=== PATIENT | male | born 1970 | race Caucasian/White ===

== ENCOUNTER 2019-01-18 14:34 | Emergency (ER) | payer OTHER, SELFPAY ==
[2019-01-18 14:47] VITALS: BP 132/81; PULSE 81; RESP 14; TEMP 37; O2SAT 97
--- NOTE | 2019-01-18 15:32 | ED.GENADUL_ITS ---
Discharge Plan Disposition Patient Disposition: HOME Condition: Good Discharge Details Chief Complaint: Laceration Clinical Impression: Laceration of left ring finger Primary Care Provider: Buck Mayorga ED Provider: Immanuel Marcum Home Meds and New Rx's Prescriptions: No Action No Known Home Meds RF: 0 Discharge Instructions Instructions: Care For Your Stitches (ED), Finger Laceration (ED) Additional Instructions: Please use the splint on your finger for the next 3-4 days to allow for maximal wound healing. Please leave the dressing on for 24 hours, then you may remove and begin cleaning the wound at least twice a day with soap and water. Watch for any signs of infection and return if any increasing redness, swelling, pain, drainage. Please return here in the next 7-10 days for reevaluation and potential suture removal. If you notice any worsening of your symptoms, or any new symptoms such as vomiting, diarrhea, fever, chills, shortness of breath, chest pain, numbness, weakness, or fainting , please return immediately to the emergency department for reevaluation. Please follow up with your primary care provider as soon as possible for reassessment and reevaluation. As always, it was a pleasure participating in your medical care today. Referrals: Buck Mayorga [Primary Care Provider] - Medical Decision Making This is a very pleasant 48-year-old male who presents for laceration. He got a small 1.5 cm laceration on the dorsal aspect of his ring finger on his nondominant hand. Ring was removed here. His tetanus was updated in 2010. The area was anesthetized with 3 mL's of 1% lidocaine. It was then scrubbed with chlorhexidine scrub and irrigated with copious amounts of normal saline. Exploration revealed no evidence of tendon involvement. Patient demonstrates normal sensation, two-point discrimination, and movement in all aspects of movement for the finger showing no evidence of tendon disruption or pathology. 2 simple interrupted sutures were placed with 5-0 Ethilon suture. Patient tolerated this well. Dermabond was then placed over the suture site. Patient will be discharged home with close follow-up. We discussed red flags which to return. Patient will be placed with a splint on his finger to prevent any significant tension to the finger. I have extensively reviewed the treatment plan and discharge instructions with the patient. I have addressed all patient concerns at this time. The patient was made aware of what symptoms to monitor for that would warrant a return to the emergency department. Discussed the plan with the patient, they demonstrate verbal understanding and agreement with our assessment and plan at this time. HPI General Date/Time Provider Initiated Documentation: 01/18/19 14:54 . HPI Narrative: This is a 48-year-old male with no past medical history who presents today for evaluation of laceration. He is right-hand dominant. Roughly 1 hour prior to arrival he developed a small 1.5 cm laceration to the dorsal aspect of his ring finger. It occurred by accidentally comes himself on a sharp string cutter. He has no significant pain, numbness tingling or weakness in the finger, however he does have some difficulty controlling the bleeding and that is why he came in here. The finger has continued to ooze whenever he tries to move it. Patient denies any other complaints. No other modifying factors. Tetanus was updated in 2010. He is not a diabetic. He is not on any blood thinners. The string cutter was cleaned per Related Data Home Medications Medication Instructions Recorded Confirmed Unknown [No Known Home Meds] 01/18/19 01/18/19 Allergies Allergy/AdvReac Type Severity Reaction Status Date / Time No Known Allergies Allergy Unverified 01/18/19 14:51 General Stated Complaint: Laceration CODY: 4 Review of Systems Review of Systems All systems reviewed & are unremarkable except as noted in HPI and below PFSH Medical History Rotator cuff syndrome of shoulder and allied disorders (Acute) Surgical History H/O splenectomy (Acute) Social History Smoking/Tobacco Use Status: Former Tobacco Use Alcohol Intake: never Drug use: Never Substance use type: does not use Do you feel safe at home: Yes Do you feel safe in your relationship?: Yes Additional Social history: quit smoking couple years ago Exam Narrative Exam Narrative: 1.Const: Well-nourished, Well-developed, appearing stated age 2.Eyes: PERRL, no conjunctival injection, and symmetrical lids. 3.ENT: Atraumatic external nose and ears. Moist MM. Neck: Symmetric, trachea midline, No thyromegaly. 4.CVS: +S1/S2, No murmurs or gallops. Peripheral pulses 2+ and equal in all extremities. Brisk capillary refill in all extremities. 5.RESP: Unlabored respiratory effort. Clear to auscultation bilaterally. No wheezes rales or rhonchi 6.GI: Soft, Nontender/Nondistended, No hepatosplenomegaly. No guarding or rebound. 7.MSK: Normocephalic/Atraumatic, Extremities w/o deformity or ttp No cyanosis or clubbing, Normal movement of all extremities. Normal flexion and extension distal to the site of injury for the ring finger on the left hand. No evidence of joint weakness or laxity in the finger. Excellent capillary refill distal to the injury, and normal two-point discrimination at 5 mm. 8.Skin: Warm, Dry. 1.5 cm linear laceration on the nondominant left hand in the dorsal aspect of the ring finger between the interphalangeal joint and the DIP joint. Exploration reveals no evidence of tendon involvement or tendon presence. Laceration is superficial without any impact on the deep structures. No evidence of bone or tendon involvement. 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 Sensation grossly intact, no focal neurologic deficits. 10.Psych: (AAO) x3. Appropriate mood and affect Course Vital Signs Temperature 37.0 C 01/18/19 14:47 Pulse 81 01/18/19 14:47 Respiratory Rate 14 01/18/19 14:47 Blood Pressure 132/81 01/18/19 14:47 Pulse Oximetry 97 01/18/19 14:47 Temperature 37.0 C 01/18/19 14:47 Temperature Source Skin 01/18/19 14:47 Pulse 81 01/18/19 14:47 Respiratory Rate 14 01/18/19 14:47 Respiratory Effort 01/18/19 14:52 Blood Pressure 132/81 01/18/19 14:47 Blood Pressure Position Sitting 01/18/19 14:47 Pulse Oximetry 97 01/18/19 14:47 Oxygen Delivery Method Room Air 01/18/19 14:47 Oxygen Flow Rate 0 01/18/19 14:47 Pain Level 0 01/18/19 15:15
== END 2019-01-18 15:35 | disposition home or self-care (01) ==
PROVIDERS: Emergency Provider Student in an Organized Health Care Education/Training Program; PCP Internal Medicine
DX: S61.215A Laceration without foreign body of left ring finger without damage to nail, initial encounter (principal); W26.0XXA Contact with knife, initial encounter
CPT/HCPCS: 12001

== ENCOUNTER 2019-01-29 15:39 | Emergency (ER) | payer SELFPAY ==
--- NOTE | 2019-01-29 15:46 | ED.GENADUL_ITS ---
Discharge Plan Disposition Patient Disposition: HOME Condition: Good Discharge Details Chief Complaint: SutureRem Clinical Impression: Visit for suture removal Primary Care Provider: Buck Mayorga ED Provider: Buck Villanueva Home Meds and New Rx's Prescriptions: No Action No Known Home Meds RF: 0 Discharge Instructions Additional Instructions: May resume normal activity. Medical Decision Making Two sutures removed without significant difficulty. Discharged home. HPI General Mode of arrival: ambulatory . Date/Time Provider Initiated Documentation: 01/29/19 15:44 . Limitations to Documentation: no limitations . Information obtained by: patient . HPI Narrative: Patient presents to have sutures removed out of finger. Has been in for over a week now. No issues at all. Related Data Home Medications Medication Instructions Recorded Confirmed Unknown [No Known Home Meds] 01/18/19 01/18/19 Allergies Allergy/AdvReac Type Severity Reaction Status Date / Time No Known Allergies Allergy Unverified 01/18/19 14:51 General CODY: 4 Review of Systems Constitutional Denies fever(s) Integumentary/Breasts Denies erythema PFSH Medical History Rotator cuff syndrome of shoulder and allied disorders (Acute) Surgical History H/O splenectomy (Acute) Social History Smoking/Tobacco Use Status: Former Tobacco Use Alcohol Intake: never Drug use: Never Substance use type: does not use Do you feel safe at home: Yes Do you feel safe in your relationship?: Yes Additional Social history: quit smoking couple years ago Exam Narrative Exam Narrative: Laceration has healed well. No sign of infection or problems. Normal ROM of hand/finger.
== END 2019-01-29 16:18 | disposition home or self-care (01) ==
PROVIDERS: Emergency Provider Emergency Medicine; PCP Internal Medicine
DX: S61.215D Laceration without foreign body of left ring finger without damage to nail, subsequent encounter (principal); W26.0XXD Contact with knife, subsequent encounter; Z48.02 Encounter for removal of sutures

== ENCOUNTER 2020-02-01 08:12 | Outpatient (CLI) | payer OTHER, SELFPAY ==
--- NOTE | 2020-02-01 08:18 | DI.RAD_ITS ---
EXAM: XR FOOT LT COMPLETE CLINICAL HISTORY: PLANTAR FASCITIS LT, M72.2. TECHNIQUE: 2D digital imaging was performed. COMPARISON: No exams were available for comparison FINDINGS: BONES: A plantar calcaneal spur is seen. No acute fracture is present. No bony destructive lesion is seen. JOINTS: There are no significant degenerative changes. No dislocation present. SOFT TISSUE: Normal. IMPRESSION: Small heel spur. DATA REPOSITORY: RADIATION DOSE DELIVERED:
--- NOTE | 2020-02-01 08:18 | DI.RAD_ITS ---
EXAM: XR ANKLE LT COMPLETE CLINICAL HISTORY: PLANTAR FASCITIS LT, M72.2 TECHNIQUE: 2D digital imaging was performed. COMPARISON: No exams were available for comparison FINDINGS: There is a small plantar calcaneal spur. There is spurring at the medial malleolus. There is mild deformity of the lateral malleolus which could be related to previous trauma. There are 2 small calc ifications seen adjacent to the lateral malleolus which also are likely related to old trauma. The t ibiotalar joint space is well maintained. No talar dome defect is seen. IMPRESSION: Small heel spur. Mild degenerative changes and question of old posttraumatic changes of the lateral m alleolus.
== END 2020-02-01 08:32 ==
PROVIDERS: PCP Internal Medicine; Visit Provider Physician Assistant
DX: M72.2 Plantar fascial fibromatosis (principal); M77.32 Calcaneal spur, left foot; M89.8X7 Other specified disorders of bone, ankle and foot
CPT/HCPCS: 73610; 73630

== ENCOUNTER 2021-06-26 18:34 | Emergency (ER) | payer OTHER, SELFPAY ==
[2021-06-26 18:37] VITALS: BP 134/108; PULSE 112; RESP 16; TEMP 37; O2SAT 97
--- NOTE | 2021-06-26 18:40 | ED.GENADUL_ITS ---
Discharge Plan Disposition Patient Disposition: HOME Condition: Stable Discharge Details Clinical Impression: Enteritis Primary Care Provider: Buck Mayorga ED Provider: Noemy Branch Home Meds and New Rx's Prescriptions: New levofloxacin 750 mg tablet 750 mg PO DAILY Qty: 10 RF: 0 metronidazole [Flagyl] 500 mg tablet 500 mg PO TID Qty: 30 RF: 0 Discharge Instructions Instructions: Enteritis (ED) Additional Instructions: clear liquids advance as tolerated. push fluids to stay well hydrated return if unable to tolerate oral fluids collect stool as directed, return to lab for evaluation Referrals: Buck Mayorga [Primary Care Provider] - Samara Lopez DO [ NON-[facility]ICIAN] - (call Tuesday for follow up) Discharge Orders Other Ambulatory Orders: Calprotectin (Routine) Facility: [facility] - Location: Laboratory Nonpatient Ordered By: Noemy Branch C Diff PCR (Stat) Location: None Selected Ordered By: Noemy Branch Medical Decision Making presents with several day history of diarrhea now with one day of left sided abdominal pain. no fevers or vomiting. diarrhea is watery, no blood. will establish IV routine abd pain labs including cbc, cmp. lipase and urine. no antiemetics needed. differentials include diverticulitis, gastroenteritis, less likely kidney stone. will obtain CT abd/pelvis and give 1liter of NS, tachy and hyptensive, likely d/t pain and mild dehydration, non toxic appearing. ct scan results reviewed with Dr Lopez who recommends treatment for infectious enteritis is levaquin and flagyl and outpatient f/u with their office patient vitals improved after one liter of NS. able to tolerate PO fluids and abdominal re-exam benign but with ongoing left sided discomfort. safe for discharge to home on antibiotics, first dose given here, will f/u outpatient or return sooner if new or worsening symptoms Medical Records Medical records reviewed: Yes I reviewed the patient's medical records. Imaging Data Radiologic Study: Imaging: X-Ray Radiologist's impression: Exam(s) PROCEDURE INFORMATION: Exam: CT Abdomen And Pelvis With Contrast Exam date and time: 06/26/2021 6:48 PM Age: 50 years old Clinical indication: Other: Left-sided abdominal pain and diarrhea; Prior surgery; Surgery date: 6+ months; Surgery type: Splenectomy several years ago TECHNIQUE: Imaging protocol: Computed tomography of the abdomen and pelvis with contrast. Radiation optimization: All CT scans at this facility use at least one of these dose optimization techniques: automated exposure control; mA and/or kV adjustment per patient size (includes targeted exams where dose is matched to clinical indication); or iterative reconstruction. Contrast material: OMNIPAQUE 350; Contrast volume: 100 ml; Contrast route: INTRAVENOUS (IV); COMPARISON: No relevant prior studies available. FINDINGS: Lungs: Lateral left lower lobe 5 mm pulmonary nodule on series 4, image 6. The remainder of the visualized lung bases are clear. Liver: Mild generalized hepatic steatosis. Gallbladder and bile ducts: Normal. No calcified stones. No ductal dilation. Pancreas: Calcifications in the pancreatic tail reflective of chronic pancreatitis. No peripancreatic fat stranding or fluid at this time to suggest acute findings. Spleen: Large regenerating splenic rest at the site of the prior splenectomy measuring 8.5 cm with mass effect on the splenic flexure of the colon but no proximal obstruction. Adrenal glands: Normal. No mass. Kidneys and ureters: Normal. No hydronephrosis. Stomach and bowel: Mild mucosal enhancement of the terminal ileum. Query terminal ileitis. Mild proximal jejunal wall thickening. Appendix: Appendix is normal in caliber. No periappendiceal edema. No findings to suggest acute appendicitis. Intraperitoneal space: Unremarkable. No free air. No significant fluid collection. Vasculature: Unremarkable. No abdominal aortic aneurysm. Lymph nodes: Unremarkable. No enlarged lymph nodes. Urinary bladder: Unremarkable as visualized. Reproductive: Unremarkable as visualized. Bones/joints: Unremarkable. No acute fracture. Soft tissues: Unremarkable. IMPRESSION: 1. Postoperative changes of splenectomy with a large regenerating splenic rest exerting mild mass effect on the splenic flexure of the colon but no proximal large bowel dilatation. 2. Mucosal enhancement of the terminal ileum and jejunal wall thickening suggestive of multifocal enteritis. Correlate with history of infectious versus inflammatory bowel disease. Terminal ileal findings are seen in Crohn's ileitis. 3. A 5 mm left lower lobe pulmonary nodule.For patients at low risk (minimal or absent history of smoking and of other known risk factors), no routine follow-up is indicated. For patients at high risk (history of smoking or of other known risk factors), consider optional CT Chest at 12 months. (Reference: Devne) Lab Data Lab results reviewed: Yes I reviewed the patient's lab results. HPI General Mode of arrival: ambulatory . Date/Time Provider Initiated Documentation: 06/26/21 18:39 . Limitations to Documentation: no limitations . Information obtained by: patient . HPI Narrative: patient presents with left sided abdominal pain that wraps around his back, states pain started yesterday. he reports diarrhea for past 3 days, not bloody but very watery. no fevers or nausea. states he had the similar pain when his spleen ruptured. states a family member had recent right sided abdominal pain. no difficulty voiding Related Data Home Medications Medication Instructions Recorded Confirmed levofloxacin 750 mg PO DAILY #10 tab 06/26/21 metronidazole [Flagyl] 500 mg PO TID #30 tab 06/26/21 Previous Rx's Medication Instructions Recorded levofloxacin 750 mg PO DAILY #10 tab 06/26/21 metronidazole [Flagyl] 500 mg PO TID #30 tab 06/26/21 Allergies Allergy/AdvReac Type Severity Reaction Status Date / Time No Known Allergies Allergy Unverified 06/26/21 18:45 General CODY: 4 Review of Systems All systems reviewed & are unremarkable except as noted in HPI and below Constitutional Constitutional: Denies chills, Denies fever(s) and Denies poor appetite Gastrointestinal Gastrointestinal: Reports abdominal pain (left side), Denies hematochezia, Denies cramping, Reports diarrhea (watery), Denies nausea and Denies vomiting Genitourinary Genitourinary: Denies hematuria, Denies urinary frequency, Denies urinary hesitancy and Denies urinary urgency [facility] Medical History (Updated 06/26/21 @ 20:47 by Neomy Branch NP) Rotator cuff syndrome of shoulder and allied disorders Surgical History H/O splenectomy Social History Smoking/Tobacco Use Status: Current every day Tobacco Type: smokeless tobacco Smoking risk assessment performed?: Yes Alcohol Intake: never Drug use: Never Substance use type: does not use Do you feel safe at home: Yes Do you feel safe in your relationship?: Yes Additional Social history: quit smoking couple years ago - chews Exam Const General: cooperative, healthy appearing, comfortable and no acute distress Nutritional Appearance: obese Orientation: alert, awake and oriented x3 HENMT Head: normal to inspection, normocephalic and atraumatic Mouth: oral mucosae normal Resp Effort & Inspection: normal respiratory effort Cardio Rate: tachycardic Rhythm: regular rhythm GI Inspection: distended and obesity Palpation: soft, not firm, no guarding, no masses and tender in the LLQ and in the LUQ
--- NOTE | 2021-06-26 18:45 | DI.CT_ITS ---
Exam(s) CT ABDOMEN PELVIS W EXAM: CT ABDOMEN PELVIS W CLINICAL HISTORY: left sided abdominal pain and diarrhea. TECHNIQUE: Imaging Protocol: Axial computed tomography images with coronal and sagittal reformatted images were created and reviewed CONTRAST MATERIAL: Intravenous: Omnipaque 100cc Oral: None COMPARISON: No exams were available for comparison FINDINGS: VISUALIZED LUNG BASES: There is a 5 millimeter nodule in the lateral basal segment of the left lower lobe. No pleural effusions.. ABDOMEN: Apparently there has been prior splenectomy There is no ascites. LIVER: Liver is diffusely hypodense implying moderate steatosis. There are no discrete focal hepatic lesions identified. GALLBLADDER/BILIARY: No obvious gallbladder pathology. CBD is not dilated. PANCREAS: No evidence of pancreatic mass nor dilatation of the pancreatic duct. There are 3 small pa ncreatic parenchymal calcifications are noted. SPLEEN: There is splenic appearing tissue in left upper quadrant measuring 7.8 cm by 6.3 cm by 7.7 cm . Probably consistent with regenerated splenic rest. This is medially adjacent to the splenic flexu re of the colon. No perisplenic fluid splenic and portal veins are patent. ADRENALS: There are no significant adrenal masses. KIDNEYS:No cysts evident. No solid renal masses. No calculi nor hydronephrosis.. ABDOMINAL AORTA: Abdominal aorta is not enlarged. LYMPH NODES:There is no retroperitineal nor paraaortic adenopathy. ABDOMINAL WALL: No evidence of significant anterior abdominal wall hernia. GI: There is no evidence of bowel obstruction, free air, nor abscess. There may be slight generalized thickening of the wall of the jejunum. PELVIS: GI: No evidence of appendicitis.No evidence of sigmoid diverticulitis. LYMPH NODES: There is no intrapelvic nor inguinal adenopathy. REPRODUCTIVE: Prostate gland slightly enlarged. Contains calcifications. Seminal vesicles unremarka ble. URINARY BLADDER: No calculi nor obvious masses. Pelvic ureters are not dilated. OSSEOUS: No significant osseous lesions. IMPRESSION: 1. There is a 7.8 x 6.3 x 7.7 cm regenerated splenic rest adjacent to the splenic fracture of the col on. Splenic vein is patent. 2. Slight thickening of the small bowel jejunal wall (generalized), possibly related to an element of enteritis. This difficult to assess accurately without oral contrast. 3. Hepatic steatosis. No discrete focal hepatic lesions. 4. There are 3 small calcifications are noted in the pancreatic parenchyma. No discrete pancreatic m ass is noted. 5. 5 millimeter nodule noted in the left lower lobe. If clinically indicated recommend low-dose hillary st CT scan to determine if there are other nodules. RADIATION DOSE DELIVERED: 1,084.68mGy.cm Total DLP DATA REPOSITORY: All CT scans at this facility are submitted to the National Radiology Data Registry (NRDR) Dose Index Registry (DIR) with the [employer] (A[employer]). RADIATION OPTIMIZATION: All CT scans at this facility use at least one of these dose optimization te chniques: automated exposure control; mA and/or kV adjustment per patient size (includes targeted exa ms where dose is matched to clinical indication); or iterative reconstruction.
[2021-06-26] MEDS: Normal Saline 1,000 ML 1000 ML IV (18:50)
[2021-06-26 19:03] LABS: Abs Immature Grans 0.04 10^3/uL (0.0-0.06); Absolute Eosinophil Count 0.35 10^3/uL (0.0-0.7); Absolute Lymphocyte Count 2.78 10^3/uL (1.2-3.4); Absolute Monocyte Count 0.98 10^3/uL (0.1-0.8); Absolute Neutrophil Count 7.26 10^3/uL (1.2-6.7); Basophils % 0.3; Eosinophils % 3.1; HCT 48.2 % (40.0-50.0); HGB 16.5 g/dL (13.5-17.5); Immature Grans % 0.3; Lymphocytes % 24.3; MCH 30.8 pg (27.0-33.0); MCHC 34.2 % (32.0-36.0); MCV 89.9 fL (80-95); MPV 9.3 fL (8.0-11.0); Monocytes % 8.6; Neutrophils % 63.4; Nucleated RBC 0 %; Platelet Count 324 10^3/uL (130-400); RBC 5.36 10^6/uL (4.36-5.78); RDW 12.6 % (11.8-14.1); RDW-SD 41.4 fL; WBC 11.45 10^3/uL (4.4-10.8)
[2021-06-26 19:04] LABS: Absolute Basophil Count 0.03 10^3/uL (0.0-0.2)
[2021-06-26 19:09] LABS: ALT 63 U/L (16-63); AST 26 U/L (15-37); Albumin 3.9 g/dL (3.4-5.0); Alkaline Phosphatase 116 U/L (46-116); Anion Gap 7.8 mmol/L (3-11); BUN 18 mg/dL (7-18); Bilirubin, Total 0.6 mg/dL (0.2-1.0); CO2 25.2 mmol/L (21.0-32.0); CREATININE 1.3 mg/dL (0.70-1.30); Calcium 8.6 mg/dL (8.5-10.1); Chloride 105 mmol/L (98-107); Estimated GFR 58.67 (mL/min/1.73m2); Glucose 97 mg/dL (74-106); Potassium 3.9 mmol/L (3.5-5.1); Sodium 138 mmol/L (136-145); Total Protein 7.5 g/dL (6.4-8.2)
[2021-06-26 19:11] LABS: Lipase 96 U/L (73-393); Magnesium 1.9 mg/dL (1.8-2.4)
[2021-06-26] MEDS: Omnipaque 350 MG/ML 100 ML BTL IJ (19:28)
[2021-06-26] MEDS: Normal Saline Flush 10 ML SYR IVP (19:30)
[2021-06-26 20:03] VITALS: BP 127/79; PULSE 89; RESP 16; TEMP 36.8; O2SAT 98
--- NOTE | 2021-06-26 20:15 | DI.VRAD_ITS ---
PROCEDURE INFORMATION: Exam: CT Abdomen And Pelvis With Contrast Exam date and time: 06/26/2021 6:48 PM Age: 50 years old Clinical indication: Other: Left-sided abdominal pain and diarrhea; Prior surgery; Surgery date: 6+ months; Surgery type: Splenectomy several years ago TECHNIQUE: Imaging protocol: Computed tomography of the abdomen and pelvis with contrast. Radiation optimization: All CT scans at this facility use at least one of these dose optimization techniques: automated exposure control; mA and/or kV adjustment per patient size (includes targeted exams where dose is matched to clinical indication); or iterative reconstruction. Contrast material: OMNIPAQUE 350; Contrast volume: 100 ml; Contrast route: INTRAVENOUS (IV); COMPARISON: No relevant prior studies available. FINDINGS: Lungs: Lateral left lower lobe 5 mm pulmonary nodule on series 4, image 6. The remainder of the visualized lung bases are clear. Liver: Mild generalized hepatic steatosis. Gallbladder and bile ducts: Normal. No calcified stones. No ductal dilation. Pancreas: Calcifications in the pancreatic tail reflective of chronic pancreatitis. No peripancreatic fat stranding or fluid at this time to suggest acute findings. Spleen: Large regenerating splenic rest at the site of the prior splenectomy measuring 8.5 cm with mass effect on the splenic flexure of the colon but no proximal obstruction. Adrenal glands: Normal. No mass. Kidneys and ureters: Normal. No hydronephrosis. Stomach and bowel: Mild mucosal enhancement of the terminal ileum. Query terminal ileitis. Mild proximal jejunal wall thickening. Appendix: Appendix is normal in caliber. No periappendiceal edema. No findings to suggest acute appendicitis. Intraperitoneal space: Unremarkable. No free air. No significant fluid collection. Vasculature: Unremarkable. No abdominal aortic aneurysm. Lymph nodes: Unremarkable. No enlarged lymph nodes. Urinary bladder: Unremarkable as visualized. Reproductive: Unremarkable as visualized. Bones/joints: Unremarkable. No acute fracture. Soft tissues: Unremarkable. IMPRESSION: 1. Postoperative changes of splenectomy with a large regenerating splenic rest exerting mild mass effect on the splenic flexure of the colon but no proximal large bowel dilatation. 2. Mucosal enhancement of the terminal ileum and jejunal wall thickening suggestive of multifocal enteritis. Correlate with history of infectious versus inflammatory bowel disease. Terminal ileal findings are seen in Crohn's ileitis. 3. A 5 mm left lower lobe pulmonary nodule.For patients at low risk (minimal or absent history of smoking and of other known risk factors), no routine follow-up is indicated. For patients at high risk (history of smoking or of other known risk factors), consider optional CT Chest at 12 months. (Reference: Deven) REFERENCES: Deven Sanchez et al. Guidelines for Management of Incidental Pulmonary Nodules Detected on CT Images: From the Fleischner Society 2017. Radiology. 2017;284(1):228-243. Dictated and Authenticated by: Mo Tucker MD. Ordering:ANT Salguero MD
[2021-06-26] MEDS: metroNIDAZOLE 500 MG TAB, 3 TABS/BTL PO (20:43)
[2021-06-26] MEDS: levoFLOXacin 500 MG, levoFLOXacin 250 MG 750 MG PO (20:44)
[2021-06-26 21:02] LABS: Bilirubin Negative (Negative); Blood Trace-lysed (Negative); Clarity Clear (Clear); Glucose Negative (Negative); Ketones Negative (Negative); Leukocyte Esterase Negative (Negative); Nitrite Negative (Negative); Urobilinogen 0.2 EU/dL (Up TO 0.2); pH 5.5 (5-8)
[2021-06-26 21:06] LABS: Bacteria Negative HPF (Negative); C & S Indicated? No; Casts Negative LPF (Negative); Crystals Negative HPF (Negative); Epithelial Cells Few HPF (Negative); Mucus Negative (Negative); RBC 0-2 HPF (0-2); WBC 0-2 HPF (0-5)
== END 2021-06-26 21:00 | disposition home or self-care (01) ==
PROVIDERS: Emergency Provider Nurse Practitioner Acute Care; PCP Internal Medicine
DX: K52.9 Noninfective gastroenteritis and colitis, unspecified (principal)
CPT/HCPCS: 36415; 80053; 83690; 96360; 99285; 74177; 81003; 81015; 83735; 85025; 99284; J3490

== ENCOUNTER 2021-07-21 07:00 | Outpatient (REF) | payer OTHER, SELFPAY ==
[2021-07-21 19:26] LABS: Abs Immature Grans 0.03 10^3/uL (0.0-0.06); Absolute Basophil Count 0.04 10^3/uL (0.0-0.2); Absolute Eosinophil Count 0.72 10^3/uL (0.0-0.7); Absolute Lymphocyte Count 3.21 10^3/uL (1.2-3.4); Absolute Monocyte Count 1.19 10^3/uL (0.1-0.8); Absolute Neutrophil Count 5.99 10^3/uL (1.2-6.7); Basophils % 0.4; Eosinophils % 6.4; HCT 46.3 % (40.0-50.0); HGB 15.5 g/dL (13.5-17.5); Immature Grans % 0.3; Lymphocytes % 28.7; MCH 30.6 pg (27.0-33.0); MCHC 33.5 % (32.0-36.0); MCV 91.3 fL (80-95); MPV 9.9 fL (8.0-11.0); Monocytes % 10.6; Neutrophils % 53.6; Nucleated RBC 0 %; Platelet Count 299 10^3/uL (130-400); RBC 5.07 10^6/uL (4.36-5.78); RDW 12.6 % (11.8-14.1); RDW-SD 42.2 fL; WBC 11.18 10^3/uL (4.4-10.8)
[2021-07-21 19:59] LABS: ALT 57 U/L (16-63); AST 30 U/L (15-37); Albumin 3.6 g/dL (3.4-5.0); Alkaline Phosphatase 94 U/L (46-116); Anion Gap 8.8 mmol/L (3-11); BUN 15 mg/dL (7-18); Bilirubin, Total 0.4 mg/dL (0.2-1.0); CO2 26.2 mmol/L (21.0-32.0); Calcium 8.5 mg/dL (8.5-10.1); Chloride 105 mmol/L (98-107); Glucose 98 mg/dL (74-106); Potassium 4.3 mmol/L (3.5-5.1); Sodium 140 mmol/L (136-145); Total Protein 6.5 g/dL (6.4-8.2)
[2021-07-21 21:55] LABS: C Diff PCR Negative (Negative)
[2021-07-23 11:00] LABS: Campylobacter PCR Negative (Negative); Salmonella PCR Negative (Negative); Shiga Toxin PCR Negative (Negative); Shigella/Enteroinvasive Ecoli Negative (Negative)
== END 2021-07-22 07:44 | disposition home or self-care (01) ==
LOC: NCHCN 07:00
PROVIDERS: PCP Internal Medicine; Visit Provider Physician Assistant
DX: R19.7 Diarrhea, unspecified (principal)
CPT/HCPCS: 80053; 87329; 87493; 87505; 85025; 87177

== ENCOUNTER 2022-12-28 16:52 | Outpatient (REF) | payer BC, SELFPAY ==
[2022-12-28 20:06] LABS: Hemoglobin A1C 6.4 % (<5.7)
[2022-12-28 20:08] LABS: ALT 59 U/L (16-63); AST 32 U/L (15-37); Albumin 3.7 g/dL (3.4-5.0); Alkaline Phosphatase 101 U/L (46-116); Anion Gap 4.4 mmol/L (3-11); BUN 17 mg/dL (7-18); Bilirubin, Total 0.3 mg/dL (0.2-1.0); CO2 31.6 mmol/L (21.0-32.0); CREATININE 1.1 mg/dL (0.70-1.30); Calcium 9.1 mg/dL (8.5-10.1); Calculated LDL 159 mg/dL (<100); Chloride 106 mmol/L (98-107); Cholesterol 222 mg/dL (<200); Estimated GFR 81.28 (mL/min/1.73m2); Glucose 121 mg/dL (74-106); HDL Cholesterol 37 mg/dL (40-60); Potassium 4.5 mmol/L (3.5-5.1); Sodium 142 mmol/L (136-145); Total Protein 7.2 g/dL (6.4-8.2); Triglyceride 132 mg/dL (<150)
== END 2022-12-28 16:53 | disposition home or self-care (01) ==
LOC: NCHCN 16:52
PROVIDERS: PCP Internal Medicine; Visit Provider Physician Assistant
DX: Z00.00 Encounter for general adult medical examination without abnormal findings (principal); E78.5 Hyperlipidemia, unspecified; R73.9 Hyperglycemia, unspecified
CPT/HCPCS: 80053; 80061; 83036

== ENCOUNTER 2023-08-05 10:07 | Day surgery (SDC) | payer BC, SELFPAY ==
--- NOTE | 2023-08-05 07:23 | PDOC.DSDIS_ITS ---
Date of service: 08/05/23 Time of Service: 12:50 Discharge Plan Disposition Patient Disposition: Home Condition: Good Discharge Details Reason For Visit: colon cancer screening Attending Provider: Racquel Badillo Primary Care Provider: Buck Mayorga Home Meds and New Rx's Prescriptions: Continued fluticasone propionate [Flonase Allergy Relief] 50 mcg/actuation spray,suspension 2 spray intranasal DAILY Hold Instructions: Pt Stopped/Never Started Rx Instructions: administer into each nostril Discontinued bisacodyl [Dulcolax (bisacodyl)] 5 mg tablet,delayed release (DR/EC) 5 mg PO ONCE Qty: 4 0RF Rx Instructions: Colonoscopy Bowel Prep- Per Instructions polyethylene glycol 3350 17 gram/dose powder 238 g PO ONCE Qty: 238 0RF Rx Instructions: Colonoscopy Bowel Prep- Per Instructions No Action bisacodyl 5 mg tablet,delayed release (DR/EC) PO Patient Comments: FOLLOW COLONOSCOPY PREP INSTRUCTIONS polyethylene glycol 3350 17 gram/dose powder Patient Comments: FOLLOW COLONOSCOPY PREP rosuvastatin 10 mg tablet 10 mg PO DAILY Patient Comments: TAKE ONE TABLET BY MOUTH EVERY EVENING Discharge Instructions Additional Instructions: DSU Colonoscopy Post- Op Instructions Instructions for Everyone who is given Anesthesia: For your safety, please do the following for the next twenty-four (24) hours: *Do Not operate a motor vehicle (car, truck, motorcycle, etc.) *Do Not drink alcoholic beverages or use any recreational drugs for the first 24 hours or while taking pain medications. The medications in your body may have a reaction that can be dangerous. *Do Not make any important decisions or sign any important papers. Findings: Colon appears normal. Biopsies were taken. My office will send a letter in 2 to 3 weeks time with the results of the biopsies. Follow up: Repeat in 10 years time 1. No lifting over 20 pounds or strenuous activity for the first 24 hours after your procedure. After 24 hours there are no restrictions on your activity but you may feel fatigued for a few days. 2. After you arrive home you may have a light meal and return to your normal diet as you can tolerate it without feeling sick to your stomach. 3. You may have a bloated, gaseous feeling in your belly (abdomen) after a colonoscopy. Passing gas and belching will help. Walking or lying down on your left side with your knees flexed may relieve the discomfort. Call the office at [phone] (Office) or [phone] (Hospital) right away if you notice any of the following: a.Vomiting of blood or ?coffee ground stools?. b.Rectal bleeding 1Tbsp, blood clots or continuous bleeding. c.Severe belly (abdominal) pain. d.A hard distended belly (abdomen) and an inability to pass gas. 4. Please don?t expect to have a normal BM (bowel movement) for 2-3 days after your procedure. 5. If there are questions regarding the findings of your procedure, please contact your doctor 6. If you are unable to contact your doctor with a problem, contact the hospital at [phone]. 7. Continue all your regular medications unless directed otherwise. I understand the above instructions and have no questions. 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 The patient has been able to pass gas.? They are not having abdominal pain.? They have been able to tolerate liquids and a snack.? They do not have any nausea or vomiting.? They are not having any chest pain or shortness of breath.??? They are not having any rectal bleeding. Their vital signs have been stable-see nursing notes. We discussed findings during their colonoscopy, and any biopsies that were done/polyps that were removed. The patient will be sent a letter with any biopsy results, and when to repeat the colonoscopy.-see discharge instructions. Patient was given explicit instructions to follow-up regarding colonoscopy-refer to discharge instructions.? We reviewed resumption of medications. Patient verbalized understanding and discharged in stable and satisfactory condition- See nursing notes.
--- NOTE | 2023-08-05 07:25 | W.COLOREPORT ---
Date of service: 08/05/23 Time of Service: 12:48 Colonoscopy Report Date of procedure: 08/05/23 Pre-op diagnosis general: crc cancer screening /hx of diarrhea Post-op diagnosis procedure note: other (normal) Surgeon: Racquel Badillo Anesthesia Type: General:No Airway Estimated blood loss (mL): 1 Pathology: other Complications: None Disposition: same day Prep: Miralax/Dulcolax Retraction Time: 16 Procedure Description: After informed consent was obtained the patient was taken to the procedure room and placed in a left decubitous position. Monitors were applied and a time out was done. The patients name, date of , procedure, allergies to medications and metal in their body was reviewed. The patient was then sedated. Once sedated and comfortable a rectal exam was done. External exam was normal. Internal exam revealed a normal sphincter tone and no palpable masses. The scope was then introduced and retrofelexed. No internal hemorrhoids were identified. The scope was then advanced to the cecum w/out difficulty. The TI and appendiceal orifice were identified. The prep was BBPS III in all segments for total of 9. no polyps or AVMs visualized. The mucosa appears pink and healthy with a normal vascular pattern. Biopsies were taken of the cecum/80 cm / 40 cm in the rectum because of the history of diarrhea. All specimens are retrieved and no bleeding is noted The scope was then slowly retracted over 16 minutes back into the rectum. The scope was removed and the patient was woken up and taken back to Same day surgery in stable condition. The patient tolerated the procedure well and there were no immediate complications. Follow up: The patient should follow up in 10 years unless they develop changes in bowel habits or other new gastrointestinal complaints.
[2023-08-05 10:12] VITALS: BP 110/89; PULSE 98; RESP 20; TEMP 36.5; O2SAT 97
[2023-08-05 10:42] VITALS: BP 110/89; PULSE 98; RESP 20; TEMP 36.5; O2SAT 97
[2023-08-05 10:48] VITALS: BP 110/89; PULSE 98; RESP 20; TEMP 36.5; O2SAT 97
--- NOTE | 2023-08-05 10:51 | NUR.NOTE ---
Pt stated during assessment that he had chewed tobacco this morning at 0700. Reported this to Anesthesia and given go ahead Nursing Note:
[2023-08-05] MEDS: Lactated Ringers 1,000 ML 80 ML IV (11:00)
--- NOTE | 2023-08-05 11:12 | W.ANESPRE ---
General Info Date of Service Date Performed: 08/05/23 Height: 5 ft 8 in Weight: 109 kg Body Mass Index (BMI): 36.5 Surgical Procedure: Operation Date: 08/05/23 11:05 Proposed Procedure Side Surgeon rolando Badillo DO Meds Allergies and Home Medications Allergies Allergy/AdvReac Type Severity Reaction Status Date / Time No Known Allergies Allergy Unverified 08/05/23 10:27 Home Medication Medication Instructions Recorded fluticasone propionate 50 2 spray intranasal DAILY 05/18/23 mcg/actuation nasal spray,suspension (Flonase Allergy Relief) bisacodyl 5 mg tablet,delayed mg PO 08/05/23 release polyethylene glycol 3350 17 g 08/05/23 gram/dose oral powder rosuvastatin 10 mg tablet 10 mg PO DAILY 08/05/23 Current Visit Medications: Current Medications Generic Name Dose Route Start Last Admin Trade Name Freq PRN Reason Stop Dose Admin Hyoscyamine Sulfate 0.125 mg 08/05/23 04:24 Hyoscyamine 0.125 Mg Sl/Oral/Chew SL 09/04/23 04:23 DIRECTED PRN Ringer's Solution 1,000 mls @ 80 mls/hr 08/05/23 06:00 08/05/23 11:00 IV 08/05/23 23:59 80 mls/hr INFUSION MORGAN Administration IV Miscellaneous Supplies 1 each 08/05/23 06:00 Iv Access IV 08/05/23 23:59 DIRECTED MORGAN Ondansetron HCl 4 mg 08/05/23 04:24 Ondansetron 4 Mg/2 Ml Vial IVP 09/04/23 04:23 Q4H PRN PRN Nausea / Vomiting Sodium Chloride 0 ml 08/05/23 06:00 Normal Saline Flush 10 Ml Syr IV 08/05/23 23:59 PRN PRN Sodium Chloride 0 ml 08/05/23 06:00 Normal Saline 10 Ml Vial IJ 08/05/23 23:59 DIRECTED PRN Sterile Water 0 ml 08/05/23 06:00 Water,Injection,Sterile 10 Ml Vial IJ 08/05/23 23:59 DIRECTED PRN PFSH Active Problems Active Problems: Problem Status Onset Code Screening for malignant neoplasm of colon performed Z12.11 Screening for colon cancer Z12.11 Diarrhea R19.7 Enteritis K52.9 Sandra's edema of vocal folds J38.3 Vocal cord edema J38.4 Tobacco abuse Z72.0 Medical History Medical History Tobacco chew use Heel spur Bronchitis Acquired asplenia Hyperglycemia Plantar fasciitis Hyperlipidemia Rotator cuff syndrome of shoulder and allied disorders Deviated septum Hoarseness Surgical History Surgical History H/O splenectomy Tobacco Smoking/Tobacco Use Status: Current every day Tobacco Type: smokeless tobacco Alcohol Alcohol Intake: never Substance Use Substance use: Never Substance use type: does not use Vital Signs and Lab Results Vital Signs Most Recent Vital Signs in EMR: Most Recent Vital Signs Temp Pulse Resp BP Pulse Ox 36.5 C 98 H 20 110/89 97 08/05/23 10:48 08/05/23 10:48 08/05/23 10:48 08/05/23 10:48 08/05/23 10:48 Lab Results Blood Type / Crossmatch: No Data to Display Complete Blood Count: No Data to Display Complete Metabolic Panel: No Data to Display Liver Function Panel: No Data to Display Coagulation Panel: No Data to Display Cardiac Panel: No Data to Display Arterial Blood Gas: No Data to Display Venous Blood Gas: No Data to Display Pancreas Panel: No Data to Display Thyroid Panel: No Data to Display Infectious Disease: No Data to Display Blood Cultures: No Data to Display Toxicology Panel: No Data to Display Anesthesia Assessment and Plan Anesthesia History Personal History: No History of Anesthesia Complications Family History: No Family History of Anesthesia Complications Exercise Tolerance Exercise Tolerance: Metabolic Equivalents>4 Pertinent Negatives Pertinent Negatives: No Symptoms of GERD Cardiac & Pulmonary Exam Cardiac Exam: Normal S1/S2 Heart Sounds Pulmonary Exam: Clear Bilateral Breath Sounds Implantable Cardiac Device Does patient have a Pacemaker or an ICD?: No Airway Exam Known Difficult Airway: No Mallampati Class: 2 Mouth Opening: Normal (> 3cm) Thyromental Distance: Greater than 3 cm Neck Range of Motion: Full ROM Neck Circumference: Normal Teeth Condition: Normal Dentition ASA Classification ASA Score: ASA 2 Emergency Case?: No NPO Status NPO Status: NPO Clears >2 hours, Solids >8 hours Anesthesia Plan Resuscitation Status: Full Code Anesthesia Technique: General Anesthesia Airway Planned: Natural Airway Monitors Used: Standard Monitors
[2023-08-05 11:13] VITALS: BMI 36.5
[2023-08-05] MEDS: AMPICILLIN SODIUM 2 GM in Normal Saline 100 ML IVPB (12:05)
--- NOTE | 2023-08-05 12:25 | BOWEL_PTH ---
PATIENT: Leonardo Bernard LOC: [facility] U#:[id number] AGE/SX: 52/M ROOM: RE08/05/[address]: Racquel Badillo : 1970 BED: DIS: 08/05/2023 SPEC #: [id number] RECD: 08/05/23 12:49 STATUS: HUEY REQ #: [id number] CRISTI: 08/05/23 12:[address]: Racquel Badillo DEPT: Surgical Specimen RECD BY: Gabriela Lew ENTERED: 08/05/23 12:50 SP TYPE: Bowel OTHR DR: Buck Mayorga Tissues: 1 - BIOPSY BOWEL 2 - BIOPSY BOWEL 3 - BIOPSY BOWEL 4 - BIOPSY BOWEL Procedures: GROSS AND MICRO LEVEL 4 Comments: [id number]
[2023-08-05 12:41] VITALS: BP 124/89; PULSE 99; RESP 18; TEMP 36.4; O2SAT 94
--- NOTE | 2023-08-05 12:45 | W.ANESPOSTOP ---
Postoperative Evaluation Date, Time and Location Date Performed: 08/05/23 Time Performed: 12:45 Patient Location: Day Surgery Unit Vital Signs Most Recent Imported Vital Signs: Most Recent Vital Signs Temp Pulse Resp BP Pulse Ox 36.5 C 98 H 20 110/89 97 08/05/23 10:48 08/05/23 10:48 08/05/23 10:48 08/05/23 10:48 08/05/23 10:48 Assessment Mental Status: Awake (Alert & Oriented to Patient Baseline) Airway and Respiratory Function: Patent airway with normal (patient baseline) respiratory exam Cardiovascular Function: Hemodynamically Stable Hydration Status: Adequately Hydrated Nausea & Vomiting: No Nausea or Vomiting Pain: Pt. Denies Any Pain Peripheral Nerve Block: Patient did not receive a nerve block
[2023-08-05 13:16] VITALS: BP 124/78; PULSE 78; RESP 18; TEMP 36.8; O2SAT 96
== END 2023-08-05 14:14 | disposition home or self-care (01) ==
PROVIDERS: PCP Internal Medicine; Visit Provider Surgery
PROC: 0DJD8ZZ Inspection of Lower Intestinal Tract, Via Natural or Artificial Opening Endoscopic (ICD-10-PCS; CPT 45378; principal; 2023-08-05 11:00)
DX: Z12.11 Encounter for screening for malignant neoplasm of colon; Z72.0 Tobacco use; K52.9 Noninfective gastroenteritis and colitis, unspecified; J38.3 Other diseases of vocal cords; J38.4 Edema of larynx
CPT/HCPCS: 45380; 88305; J0290; J2001

== ENCOUNTER → 2023-09-30 10:07 | Outpatient (CLI) | payer BC, SELFPAY ==
--- NOTE | 2023-09-30 15:19 | DI.RAD_ITS ---
Exam(s) XR CERVICAL SPINE COMP 4-5V EXAM: XR CERVICAL SPINE COMP 4-5V CLINICAL HISTORY: M54.12 Radiculopathy, cervical region. TECHNIQUE: 2D digital imaging was performed. Six images were obtained. AP, odontoid, lateral and francois ateral oblique images were obtained. COMPARISON: No exams were available for comparison FINDINGS: The odontoid is intact. The lateral masses are well aligned. There is reversal of the normal cervica l lordosis centered at C3-C4. There is disc space narrowing and endplate osteophytes at C3-C4. No acu te fracture or subluxation is present. No significant neural foraminal stenosis is present. The cerv ical thoracic junction is well maintained. The prevertebral soft tissues are unremarkable. Lung apic es are clear. IMPRESSION: Degenerative changes seen at C3-C4. DATA REPOSITORY: RADIATION DOSE DELIVERED:
== END ==
PROVIDERS: PCP Internal Medicine; Visit Provider Physician Assistant
DX: M50.321 Other cervical disc degeneration at C4-C5 level (principal)
CPT/HCPCS: 72050

== ENCOUNTER → 2023-10-31 03:40 | Outpatient (CLI) | payer BC, SELFPAY ==
--- NOTE | 2023-10-31 14:30 | DI.MRI_ITS ---
Exam(s) MR CERVICAL SPINE WO EXAM: MR CERVICAL SPINE WO CLINICAL HISTORY: RADICULOPATHY CERVICAL REGION M54.12DEGENERATIVE CHANGES C3-C4 CHRONIC PAIN TECHNIQUE: Multiplanar multisequence MRI of the cervical spine was performed without intravenous con trast. COMPARISON: CR XR CERVICAL SPINE COMP 4-5V from 09/30/2023 FINDINGS: Exam limited by motion. BONES: Vertebral body heights are maintained. Degenerative reversal of the normal cervical lordosis a t C3-4. Bone marrow signal intensity is within normal limits. Bilevel facet degenerative changes pr esent. CERVICAL CORD: Craniovertebral junction is unremarkable. The cervical cord is normal size and signal intensity. SOFT TISSUES: Unremarkable. C2-3: No disc herniation or bulge is identified. No evidence of neural foraminal narrowing. No signi ficant central canal stenosis. C3-4: Moderate loss of height of disc, greater anteriorly the where there are osteophytes. No disc h erniation or bulge is identified. Moderate left neural foraminal narrowing. No significant central ca nal stenosis. C4-5: Mild loss of disc height. No disc herniation or bulge is identified. None mild moderate leftne ural foraminal narrowing. No significant central canal stenosis. C5-6: Small circumferential osteophytes and mild disc bulging.Mild to moderate left neural foraminal narrowing. No significant central canal stenosis. C6-7: No disc herniation or bulge is identified. No evidence of neural foraminal narrowing. No signif icant central canal stenosis. C7-T1: No disc herniation or bulge is identified. No evidence of neural foraminal narrowing. No signi ficant central canal stenosis. IMPRESSION: Exam limited by motion. Mild degenerative disc changes cyst the C3- 4 through C5-6. Facet degenerative changes present neura l foraminal narrowing on the left at these levels. No disc herniation at any level. No significant central canal stenosis DATA REPOSITORY:
== END ==
PROVIDERS: PCP Internal Medicine; Visit Provider Physician Assistant
DX: M50.022 Cervical disc disorder at C5-C6 level with myelopathy (principal); M54.12 Radiculopathy, cervical region; M99.61 Osseous and subluxation stenosis of intervertebral foramina of cervical region
CPT/HCPCS: 72141

== ENCOUNTER 2024-05-01 10:07 | Emergency (ER) | payer BC, SELFPAY ==
[2024-05-01 10:13] VITALS: BP 151/104; PULSE 94; RESP 20; TEMP 36.9; O2SAT 97
--- NOTE | 2024-05-01 10:23 | ED.GENADUL_ITS ---
Discharge Plan Disposition Patient Disposition: Home Condition: Stable Discharge Details Clinical Impression: Pruritic rash Primary Care Provider: Mihaela Swanson ED Provider: Kim Toribio Home Meds and New Rx's Prescriptions: Continued fluticasone propionate [Flonase Allergy Relief] 50 mcg/actuation spray,suspension 2 spray intranasal DAILY Rx Instructions: administer into each nostril cetirizine 10 mg tablet 10 mg PO DAILY PRN naproxen 500 mg tablet 500 mg PO BID PRN rosuvastatin 10 mg tablet 10 mg PO DAILY Patient Comments: TAKE ONE TABLET BY MOUTH EVERY EVENING Discharge Instructions Instructions: Skin Rash ED, Poison [place], Poison [place], Poison [place] ED Additional Instructions: Please use calamine and oatmeal baths for the next 2 to 3 days which you can get [id number]. If no improvement you may also apply a little bit of hydrocortisone 1% cream which you can also get [id number]. If still no improvement please follow-up with your primary care provider or [facility] care or you may return to the emergency department. You may take cetirizine/Zyrtec orally if severe increase in itching or Benadryl 1 to 2 tablets every 6-8 hours. Follow up with primary care provider in 3-5 days. Return to ED sooner if any worsening rash, fever, pain, signs of infection or concerns. Referrals: Mihaela Swanson [Primary Care Provider] - Return if symptoms worsen Discharge Data Discharge Date/Time-TO BE ENTERED AT DEPARTURE: 05/01/24 10:36 HPI General Mode of arrival: ambulatory . Date/Time Provider Initiated Documentation: 05/01/24 10:09 . Limitations to Documentation: no limitations . Information obtained by: patient, RN notes reviewed and old records reviewed . HPI Narrative: 53-year-old male presents to the ER with a chief complaint of pruritic rash noted to his left lower abdomen, groin and left upper thigh. He reports that he was out on his tractor yesterday and may have gotten into poison [place] or [place] his 2 children also have similar rash. He denies any fever or chills signs of infection or any other associated symptoms or concerns. He does have a past medical history of splenectomy, bronchitis, hyperglycemia hyperlipidemia high cholesterol. He has not taken anything for the rash prior to arrival. Related Data Home Medications ?Medication ?Instructions ?Recorded ?Confirmed fluticasone propionate 50 2 spray intranasal DAILY 05/18/23 05/01/24 mcg/actuation nasal spray,suspension (Flonase Allergy Relief) rosuvastatin 10 mg tablet 10 mg PO DAILY 08/05/23 05/01/24 cetirizine 10 mg tablet 10 mg PO DAILY PRN 09/27/23 05/01/24 naproxen 500 mg tablet 500 mg PO BID PRN 09/27/23 05/01/24 Allergies Allergy/AdvReac Type Severity Reaction Status Date / Time No Known Allergies Allergy Unverified 05/01/24 10:14 General Stated Complaint: RashLesion CODY: 4 Review of Systems All systems reviewed & are unremarkable except as noted in HPI and below Constitutional Constitutional: Denies body ache(s), Denies chills and Denies fever(s) Cardiovascular Cardiovascular: Denies chest pain, Denies dyspnea and Denies dyspnea on exertion Respiratory Respiratory: Denies dyspnea and Denies dyspnea on exertion Gastrointestinal Gastrointestinal: Denies abdominal pain, Denies diarrhea, Denies nausea and Denies vomiting Integumentary/Breasts Skin/Breast: Reports as per HPI and Reports rash (itching) Neurologic Neurologic: Reports system reviewed and no additional complaints, except as documented Exam Narrative Exam Narrative: Constitutional: Alert and oriented x3. Appears stated age. Obese body habitus. Head: Normocephalic, no trauma. Eyes: Pupils PERRL, Red reflex noted, EOM's intact. Eyelids symmetrical without lesions, discharge, or swelling. ENT: Bilateral TM's WNL, External ear normal to inspection, no mastoid TTP, swelling, or erythema, Nasal turbinates WNL, no nasal discharge. Normal dentition, Posterior pharynx WNL, no exudate. Chest: RRR, Normal S1, S2, distal pulses intact. Resp: Lungs clear to auscultation bilaterally, no wheezes, rales, or rhonchi. Abdomen: Soft, non-distended, Normoactive bowel sounds all 4 quads. Musculoskeletal: Normal gait, Moves all 4 extremities without difficulty. Skin: Maculopapular rash with irregular borders no surrounding induration noted to left lower anterior abdomen, groin and left upper thigh, capillary refill less than 2 sec. Neurologic: Cranial nerves II-XII intact. Alert and oriented x 3. Motor: No deficits noted. Sensory: Intact bilaterally all 4 extremities. Hematologic/Lymphatic: No ecchymosis, no lymphadenopathy. Skin General skin exam: elasticity normal and scars (Vertical Mid abdomen, healed) Lesions: no lesions Rashes: rashes noted maculopapular rash left anterior groin arrangement confluent, borders irregular, color red and surface smooth; fluctuant not assessed and nontender Trauma: no lacerations or abrasions Wounds: no wounds Hair: normal Course Vital Signs Vital signs: Vital Signs Temperature 36.9 C 05/01/24 10:13 Pulse 94 H 05/01/24 10:13 Respiratory Rate 20 05/01/24 10:13 Blood Pressure 151/104 H 05/01/24 10:13 Pulse Oximetry 97 05/01/24 10:13 Temperature 36.9 C 05/01/24 10:13 Temperature Source Skin 05/01/24 10:13 Pulse 94 H 05/01/24 10:13 Respiratory Rate 20 05/01/24 10:13 Respiratory Effort Normal, Non-Labored 05/01/24 10:15 Blood Pressure 151/104 H 05/01/24 10:13 Blood Pressure Position Sitting 05/01/24 10:13 Pulse Oximetry 97 05/01/24 10:13 Oxygen Delivery Method Room Air 05/01/24 10:13 Oxygen Flow Rate 0 05/01/24 10:13 Pain Level 0 05/01/24 10:13 Medical Decision Making 53-year-old male presents to the ER with a chief complaint of pruritic rash noted to his left lower abdomen, groin and left upper thigh. He reports that he was out on his tractor yesterday and may have gotten into poison [place] or [place] his 2 children also have similar rash. He denies any fever or chills signs of infection or any other associated symptoms or concerns. He does have a past medical history of splenectomy, bronchitis, hyperglycemia hyperlipidemia high cholesterol. He has not taken anything for the rash prior to arrival. Discussed home care including calamine lotion and oatmeal baths and [id number] hydrocortisone cream if no relief from the aforementioned. Patient verbalized understanding. Quality:SDOH Health Related Social Needs: No Data to Display PFSH All Active Problems (Updated 05/01/24 @ 10:31 by Kim Toribio NP) Pruritic rash (Acute) Carpal tunnel syndrome on both sides (Acute) Medial epicondylitis of both elbows (Acute) Lateral epicondylitis of both elbows (Acute) Normal colonoscopy (Acute ~08/05/23) Diarrhea (Acute) Enteritis (Acute) 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) Tobacco abuse (Chronic) Medical History Screening for malignant neoplasm of colon performed Screening for colon cancer Tobacco chew use Heel spur Bronchitis Acquired asplenia Hyperglycemia Plantar fasciitis Hyperlipidemia Rotator cuff syndrome of shoulder and allied disorders Deviated septum Hoarseness Surgical History History of colonoscopy (~07/2023) biopsies sent H/O splenectomy (~07/2023) Social History Smoking/Tobacco Use Status: Current every day Tobacco Type: smokeless tobacco Smoking risk assessment performed?: Yes Alcohol Intake: never Drug use: Never Substance use type: does not use Do you feel safe at home: Yes Do you feel safe in your relationship?: Yes Additional Social history: quit smoking couple years ago - chews
== END 2024-05-01 10:36 | disposition home or self-care (01) ==
PROVIDERS: Emergency Provider Registered Nurse Emergency; PCP Physician Assistant
DX: R21 Rash and other nonspecific skin eruption (principal); L29.8 Other pruritus; E78.5 Hyperlipidemia, unspecified; E78.00 Pure hypercholesterolemia, unspecified; F17.290 Nicotine dependence, other tobacco product, uncomplicated
CPT/HCPCS: 99283

== ENCOUNTER 2024-06-04 14:24 | Outpatient (CLI) | payer BC, SELFPAY ==
[2024-06-04 17:43] LABS: Anion Gap 6.9 mmol/L (3-11); BUN 10 mg/dL (7-18); CO2 29.1 mmol/L (21.0-32.0); CREATININE 1.4 mg/dL (0.70-1.30); Calcium 9.2 mg/dL (8.5-10.1); Chloride 103 mmol/L (98-107); Estimated GFR 60.47 (mL/min/1.73m2); Glucose 118 mg/dL (74-106); Potassium 4.3 mmol/L (3.5-5.1); Sodium 139 mmol/L (136-145)
== END 2024-06-04 14:25 | disposition home or self-care (01) ==
LOC: LBO 14:25
PROVIDERS: PCP Physician Assistant; Visit Provider Nurse Practitioner Family
DX: U07.1 COVID-19 (principal)
CPT/HCPCS: 36415; 80048

== ENCOUNTER 2024-11-18 13:12 | Emergency (ER) | payer OTHER, SELFPAY ==
--- NOTE | 2024-11-18 13:15 | DI.RAD_ITS ---
Exam(s) XR CHEST 2V PA LATERAL EXAM: XR CHEST 2V PA LATERAL CLINICAL HISTORY: Cough, s/p splenectomy, eval PNA TECHNIQUE: 2D digital imaging was performed. Two views. COMPARISON: No exams were available for comparison FINDINGS: HEART: Normal size. Aorta: Not dilated. PULMONARY VASCULATURE: Normal. MEDIASTINUM: Unremarkable. LUNGS: Clear. PLEURAL SPACE: No pleural effusion or pneumothorax. BONE:Unremarkable for age. SOFT TISSUES: Unremarkable. IMPRESSION: No acute abnormality. DATA REPOSITORY: RADIATION DOSE DELIVERED:
[2024-11-18 13:16] VITALS: BP 135/73; PULSE 92; RESP 24; TEMP 36.8; O2SAT 92
[2024-11-18 13:38] VITALS: BP 135/73; PULSE 92; RESP 24; TEMP 36.8; O2SAT 92
--- NOTE | 2024-11-18 13:58 | DI.VRAD_ITS ---
PROCEDURE INFORMATION: Exam: XR Chest Exam date and time: 11/18/2024 1:47 PM Age: 54 years old Clinical indication: Other: Cough, S/P splenectomy, eval pna TECHNIQUE: Imaging protocol: Radiologic exam of the chest. Views: 2 views. COMPARISON: MR CERVICAL SPINE WO 10/31/2023 1:53 PM FINDINGS: Lungs: Unremarkable. No consolidation. Pleural spaces: Unremarkable. No pleural effusion. No pneumothorax. Heart/Mediastinum: Unremarkable. No cardiomegaly. Bones/joints: Surgical device in the right glenohumeral joint. IMPRESSION: No acute findings. Dictated and Authenticated by: Dipti Clark MD. Orderin St. Heladio Mendoza MD
[2024-11-18 14:06] LABS: COVID-19 PCR Negative (Negative); Influenza A PCR Negative (Negative); Influenza B PCR Negative (Negative); RSV PCR Negative (Negative)
[2024-11-18 14:08] LABS: Source Nasopharynx
--- NOTE | 2024-11-18 14:21 | ED.GENADUL_ITS ---
Discharge Plan Disposition Patient Disposition: Home Condition: Stable Discharge Details Clinical Impression: Cough in adult, H/O splenectomy Primary Care Provider: Mihaela Swanson ED Provider: Kelly Farooq Home Meds and New Rx's Prescriptions: New amoxicillin 500 mg capsule 1,000 mg PO TID 5 Days Qty: 30 0RF No Action fluticasone propionate [Flonase Allergy Relief] 50 mcg/actuation spray,suspension 2 spray intranasal DAILY Rx Instructions: administer into each nostril cetirizine 10 mg tablet 10 mg PO DAILY PRN naproxen 500 mg tablet 500 mg PO BID PRN rosuvastatin 10 mg tablet 10 mg PO DAILY Patient Comments: TAKE ONE TABLET BY MOUTH EVERY EVENING Discharge Instructions Instructions: Cough, Adult ED Additional Instructions: You were seen in the emergency department today for evaluation of a cough and sputum production. In our department you do full physical examination performed, had a negative Fluvid, and a reassuring x-ray. We had a shared decision-making conversation and given your history of splenectomy we have elected to proceed with empiric antibiotics to prevent serious infection. Please take all this medication until it is gone, even if you start to feel better. Please follow-up with your primary care provider in the next few days to discuss this visit and any symptoms that change, worsen, or persist. Thank you for allowing us to be part of your care. HPI General Mode of arrival: ambulatory . Date/Time Provider Initiated Documentation: 11/18/24 13:20 . Limitations to Documentation: no limitations . Information obtained by: patient and old records reviewed . HPI Narrative: HPI: This is a 54-year-old male patient with a past medical history significant for splenectomy, presenting for evaluation of a cough. The patient reports that for the last 3 to 4 days he has had a cough productive of yellow and occasionally blood-streaked sputum, has had bodyaches and a stuffy nose. No fevers reported at home but the patient states that this feels similar to when he had pneumonia in the past, and given his splenectomy status was concerned and desiring of evaluation. He has not taken any medications in the home environment for management of symptoms, states that he has not received his influenza or pneumonia vaccine. He is not experiencing chest pain, shortness of breath, leg swelling. Exam: Gen: Awake and alert, in no apparent distress HEENT: Non-icteric sclera Neck: Supple Lungs: No apparent respiratory distress, normal respiratory effort. Lung sounds clear and equal bilaterally without wheezes, rhonchi, rales CV: Appears well perfused, heart with regular rate and rhythm, strong distal pulses Abdomen: Non-distended MSK: Moves 4 extremities without apparent limitation in ROM Skin: Visualized skin without rashes, cyanosis. Neuro: Normal Gait, no obvious focal deficits or facial asymmetry. Speaks in full, clear sentences. Psych: Appropriate for situation. MDM: This is a 54-year-old male patient presenting for evaluation of cough and bodyaches. Differential includes but is not limited to viral URI, pneumonia, bronchitis. I certainly considered reactive airway disease exacerbation though the patient is without wheezing. No evidence on physical examination for fluid overload, no chest pain, hypoxia, or tachycardia to significantly increase my concern for pulmonary embolism. The patient has no hemodynamic instability and has been tolerating oral intake making metabolic and electrolyte derangement, kidney injury less likely. We obtained a viral swab and we will proceed with chest x-ray for better characterization of any pulmonary abnormalities. ED Course: The patient's Fluvid was negative, chest x-ray without focal consolidation, but I am concerned for bronchitis versus early pneumonia in this patient with sputum production and upper respiratory symptoms, and he certainly could have another respiratory virus. I did shared decision-making conversation with the patient, regarding empiric antibiosis given his splenectomy status and his susceptibility to strep pneumoniae, versus watchful waiting and follow-up with the primary care environment, and the patient is desiring of antibiotics. There is reason a course of amoxicillin was sent to his pharmacy, and at this time, the patient has had a full medical evaluation and is safe for discharge to home. They are hemodynamically stable, ambulatory, and tolerating PO. They are understanding of the follow-up plan and return precautions. They left our facility without incident. Kelly Farooq MD Related Data Home Medications ?Medication ?Instructions ?Recorded ?Confirmed fluticasone propionate 50 2 spray intranasal DAILY 05/18/23 11/18/24 mcg/actuation nasal spray,suspension (Flonase Allergy Relief) rosuvastatin 10 mg tablet 10 mg PO DAILY 08/05/23 11/18/24 cetirizine 10 mg tablet 10 mg PO DAILY PRN 09/27/23 11/18/24 naproxen 500 mg tablet 500 mg PO BID PRN 09/27/23 11/18/24 amoxicillin 500 mg capsule 1,000 mg (2 x 500 mg) PO TID 5 11/18/24 days #30 caps Previous Rx's ?Medication ?Instructions ?Recorded amoxicillin 500 mg capsule 1,000 mg (2 x 500 mg) PO TID 5 11/18/24 days #30 caps Allergies Allergy/AdvReac Type Severity Reaction Status Date / Time No Known Allergies Allergy Unverified 05/01/24 10:14 General Stated Complaint: RespSymp CODY: 4 Course Vital Signs Vital signs: Vital Signs Temperature 36.8 C 11/18/24 13:16 Pulse 92 H 11/18/24 13:16 Respiratory Rate 24 11/18/24 13:16 Blood Pressure 135/73 11/18/24 13:16 Pulse Oximetry 92 11/18/24 13:16 Temperature 36.8 C 11/18/24 13:38 Temperature Source Oral 11/18/24 13:38 Pulse 92 H 11/18/24 13:38 Respiratory Rate 24 11/18/24 13:38 Respiratory Effort Normal, Non-Labored 11/18/24 13:41 Respiratory Depth Normal 11/18/24 13:41 Blood Pressure 135/73 11/18/24 13:38 Blood Pressure Position Sitting 11/18/24 13:38 Pulse Oximetry 92 11/18/24 13:38 Oxygen Delivery Method Room Air 11/18/24 13:38 Oxygen Flow Rate 0 11/18/24 13:38 Pain Level 0 11/18/24 13:38 Lab/Test Results Lab/Test Results: Laboratory Tests Range/Units 11/18/24 13:16 COVID-19 Source Nasopharynx SARS-CoV-2 (PCR) (Negative) Negative Influenza Type A (PCR) (Negative) Negative Influenza Type B (PCR) (Negative) Negative RSV (PCR) (Negative) Negative Medical Decision Making Quality:SDOH Health Related Social Needs: No Data to Display PFSH All Active Problems (Updated 11/18/24 @ 14:22 by Kelly Farooq MD) H/O splenectomy (Acute) Cough in adult (Acute) Carpal tunnel syndrome on both sides (Acute) Medial epicondylitis of both elbows (Acute) Lateral epicondylitis of both elbows (Acute) Normal colonoscopy (Acute ~08/05/23) Diarrhea (Acute) Enteritis (Acute) 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) Tobacco abuse (Chronic) Medical History (Updated 11/18/24 @ 14:22 by Kelly Faoroq MD) Influenza 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 Prediabetes Cough Plantar fascial fibromatosis Posterior rhinorrhea Cervical radiculopathy Screening for malignant neoplasm of colon performed Screening for colon cancer Tobacco chew use Heel spur Bronchitis Acquired asplenia Hyperglycemia Plantar fasciitis Hyperlipidemia Rotator cuff syndrome of shoulder and allied disorders Deviated septum Hoarseness Surgical History (Updated 11/18/24 @ 14:22 by Kelly Farooq MD) History of colonoscopy (~07/2023) biopsies sent H/O splenectomy (~07/2023) Family History (Updated 05/21/24 @ 13:19 by Yuly Mccord) Mother Diabetes Social History Smoking/Tobacco Use Status: Current every day Tobacco Type: smokeless tobacco Smoking risk assessment performed?: Yes Alcohol Intake: never Drug use: Never Substance use type: does not use Housing: house Do you feel safe at home: Yes Do you feel safe in your relationship?: Yes Additional Social history: quit smoking couple years ago - chews
== END 2024-11-18 14:58 | disposition home or self-care (01) ==
PROVIDERS: Emergency Provider Emergency Medicine; PCP Physician Assistant
DX: R05.9 Cough, unspecified (principal); Z90.81 Acquired absence of spleen; F17.290 Nicotine dependence, other tobacco product, uncomplicated
CPT/HCPCS: 87637; 99283; 71046

== ENCOUNTER 2025-01-03 00:51 | Inpatient (IN) | payer OTHER, SELFPAY ==
[2025-01-03] VITALS (51 sets, daily range): BP systolic 100–148; BP diastolic 38–92; PULSE 63–135; RESP 16–31; TEMP 36.2–38.7; O2SAT 90–98
--- NOTE | 2025-01-03 00:45 | RT.EKG_ITS ---
APPROVED REPORT Exam: Resting ECG Reason for Exam: chest pain Patient Location: E HR:129 bpm ECG Measurements Heart Rate 129 AXIS [place] 138 P 55 QRSd 83 QRS 82 QT 292 T 50 QTc 429 Conclusion Sinus tachycardia...rate> [address] segment or T wave abnormalities to suggest occlusive ND
--- NOTE | 2025-01-03 01:12 | ED.GENADUL_ITS ---
Discharge Plan Disposition Patient Disposition: Admit to [facility] Condition: Serious Discharge Details Clinical Impression: Asplenia, Gastroenteritis Primary Care Provider: Mihaela Swanson ED Provider: An Peterson General Mode of arrival: ambulatory . Date/Time Provider Initiated Documentation: 01/03/25 00:59 . Limitations to Documentation: no limitations . Information obtained by: patient . HPI Narrative: 4yo M with asplenia after traumatic injury, otherwise healthy, not on abx ppx, presenting for abdominal pain with associated N/V/D. 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 He first noted abdominal pain and cramping which has been persistent and worsening. Vomited around 6pm and then again later in the evening, non-bloody non-bilious emesis. Also had one episode of profuse non-bloody watery diarrhea. Reported shortness of breath to nursing; to me describes that when he takes a deep breath his belly feels 'full' and his nausea increases substantially.. No chest pain or back pain. No known sick contacts. Otherwise in his usual state of health with no chills, rash, dysuria, hematuria, or other concerns. Initially denies fevers; later reported temp of 102.2F at home however rechecked several hours later and was normal. He did not call his doctor about his fever because it 'went away', though he does state he is supposed to notify his primary care doctor when he has a fever because of his splenectomy. He does not have rescue antibiotics at home for fevers. Related Data Allergies Allergy/AdvReac Type Severity Reaction Status Date / Time No Known Allergies Allergy Unverified 01/03/25 01:01 General Stated Complaint: Abd Prob CODY: 3 Review of Systems Narrative: see HPI Exam Narrative Exam Narrative: General: Alert, appears to be in some discomfort Head: Normocephalic, atraumatic Neck: Trachea midline, ?Neck supple. ENT: ?MMM.? No oropharygeal lesions or exudate. Cardiac: ?Tachycardiac, regular, no murmurs appreciated Resp: No respiratory distress. CTAB. Abd: ?Soft, non-distended, diffusely tender to palpation with no rebound or guarding. Negative Andres's. : ?No suprapubic tenderness. Extremities: ?No deformities.? No peripheral edema. Neurologic: GCS 15. ? Moves all extremities freely against gravity Course Vital Signs Vital signs: Vital Signs Temperature 36.9 C 01/03/25 00:53 Pulse 133 H 01/03/25 00:53 Respiratory Rate 18 01/03/25 00:53 Blood Pressure 141/91 H 01/03/25 00:53 Pulse Oximetry 98 01/03/25 00:53 Temperature 36.8 C 01/03/25 00:58 Pulse 131 H 01/03/25 00:58 Respiratory Rate 20 01/03/25 00:58 Blood Pressure 141/91 H 01/03/25 00:58 Pulse Oximetry 98 01/03/25 00:58 Oxygen Delivery Method Room Air 01/03/25 00:53 Oxygen Flow Rate 0 01/03/25 00:53 Pain Level 10 01/03/25 00:58 Medical Decision Making 54yo M with asplenia after traumatic injury, otherwise healthy, not on abx ppx, presenting for abdominal pain with associated N/V/D. 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 No sick contacts. Initially did not report fever but subsequently states temp of 102.2 F at home (though he states he rechecked it a few hours later and it was normal). Tachycardiac on arrival to 130's, afebrile here. Diffuse abdominal tenderness on exam with no rebound or guarding, no focal RUQ tenderness, negative Andres's. Given tylenol, toradol, zofran and 1L IVFB for symptoms initially and labs and blood cultures sent. After pt disclosed fever, started on broad spectrum abx (ceftriaxone/vancomycin) and second liter of fluids ordered. -EKG sinus tachycardia, appropriate intervals, no ST segment or T wave abnormalities to suggest occlusive CO. -Labs reviewed as below, CBC reassuring with no leukocytosis or anemia, CMP with normal LFTs (less likely cholecystitis, choledocolithiasis, other surgical GB pathology) and no actionable abnormalities, Mg normal, lipase not suggestive of pancreatitis, lactate normal. -CT independently reviewed; no bowel obstruction or free fluid on my view, radiology read as below with no acute findings. On reassessment pt's pain has improved somewhat and nausea is much improved. HR 110's. Abdomen remains non-peritoneal. May be viral gastroenteritis/gastritis though his degree of tachycardia on arrival is out of proportion to his reported fluid losses; must consider the fact that with asplenia he is high risk for sepsis including from rapidly invasive bacterial gastroenteritis. Discussed with [facility] hospitalist Dr. Morel; pt accepted to medicine service for further workup and management. Awaiting admission orders and transfer to the floor. Imaging Data Radiologic Study: Imaging: CT Scan Radiologist's impression: IMPRESSION: 1. Ascites. 2. Fatty infiltration of the liver. 3. Small left paracentral abdominal wall hernia. 4. Mild enlargement of the prostate gland. Lab Data Lab results reviewed: Yes I reviewed the patient's lab results. Labs: 01/03/25 01:29 Blood Blood Culture - Pending 01/03/25 01:23 Blood Blood Culture - Pending Laboratory Tests Range/Units 01/03/25 01/03/25 01:07 01:58 WBC (4.4-10.8) 10^3/uL 9.06 RBC (4.36-5.78) 10^6/uL 4.91 Hgb (13.5-17.5) g/dL 15.1 Hct (40.0-50.0) % 43.9 MCV (80-95) fL 89 MCH (27.0-33.0) pg 30.8 MCHC (32.0-36.0) % 34.4 RDW (11.8-14.1) % 12.7 Plt Count (130-400) 10^3/uL 242 MPV (8.0-11.0) fL 9.8 Immature Gran % % 1.0 Neutrophils % % 84.0 Lymphocytes % % 7.4 Monocytes % % 6.1 Eosinophils % % 1.1 Basophils % % 0.4 Nucleated RBC % (0.0-0.3) % 0.0 Absolute Neutrophils (1.2-6.7) 10^3/uL 7.61 H Absolute Lymphocytes (1.2-3.4) 10^3/uL 0.67 L Absolute Monocytes (0.1-0.8) 10^3/uL 0.55 Absolute Eosinophils (0.0-0.7) 10^3/uL 0.10 Absolute Basophils (0.0-0.2) 10^3/uL 0.04 VBG Lactate (<or=2.0) mmol/L 1.6 Sodium (136-145) mmol/L 136 Potassium (3.5-5.1) mmol/L 4.1 Chloride (98-107) mmol/L 101 Carbon Dioxide (21.0-32.0) mmol/L 24.1 Anion Gap (3-11) mmol/L 10.9 BUN (7-18) mg/dL 19 H Creatinine (0.70-1.30) mg/dL 1.4 H Est GFR (CKD-EPI 2020) (mL/min/1.73m2) 60.10 Glucose (74-106) mg/dL 225 H Calcium (8.5-10.1) mg/dL 8.6 Magnesium mg/dL 1.7 Total Bilirubin (0.2-1.0) mg/dL 0.4 AST (15-37) U/L 27 ALT (16-63) U/L 47 Alkaline Phosphatase (46-116) U/L 94 Total Protein (6.4-8.2) g/dL 7.0 Albumin (3.4-5.0) g/dL 3.4 Lipase (<78) U/L 27 Quality:SDMO Health Related Social Needs: No Data to Display PFSH All Active Problems (Updated 01/03/25 @ 04:32 by Rodolfo Morel) SWANN (nonalcoholic steatohepatitis) (Chronic) Fever (Acute) Acute hyperglycemia (Acute) Hyposplenism (Chronic) Gastroenteritis (Acute) Asplenia (Acute) Carpal tunnel syndrome on both sides (Acute) Medial epicondylitis of both elbows (Acute) Lateral epicondylitis of both elbows (Acute) Normal colonoscopy (Acute ~08/05/23) Diarrhea (Acute) Enteritis (Acute) 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) Tobacco abuse (Chronic) Medical History Influenza 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 Prediabetes Cough Plantar fascial fibromatosis Posterior rhinorrhea Cervical radiculopathy Screening for malignant neoplasm of colon performed Screening for colon cancer Tobacco chew use Heel spur Bronchitis Acquired asplenia Hyperglycemia Plantar fasciitis Hyperlipidemia Rotator cuff syndrome of shoulder and allied disorders Deviated septum Hoarseness Surgical History History of colonoscopy (~07/2023) biopsies sent H/O splenectomy (~07/2023) Family History Mother Diabetes Social History Smoking/Tobacco Use Status: Current every day Tobacco Type: smokeless tobacco Smoking risk assessment performed?: Yes Alcohol Intake: never Drug use: Never Substance use type: does not use Housing: house Do you feel safe at home: Yes Do you feel safe in your relationship?: Yes Additional Social history: quit smoking couple years ago - chews
[2025-01-03] MEDS: Ondansetron 4 MG/2 ML VIAL IVP (01:15)
[2025-01-03] MEDS: Ketorolac 15 MG/ML VIAL IVP (01:15)
[2025-01-03] MEDS: ACETAMINOPHEN 1,000 MG/100 ML BAG 400 MG IVPB (01:17)
[2025-01-03 01:27] LABS: Abs Immature Grans 0.09 10^3/uL (0.0-0.06); Absolute Basophil Count 0.04 10^3/uL (0.0-0.2); Absolute Lymphocyte Count 0.67 10^3/uL (1.2-3.4); Absolute Monocyte Count 0.55 10^3/uL (0.1-0.8); Absolute Neutrophil Count 7.61 10^3/uL (1.2-6.7); Basophils % 0.4 %; Eosinophils % 1.1 %; HCT 43.9 % (40.0-50.0); HGB 15.1 g/dL (13.5-17.5); Lymphocytes % 7.4 %; MCH 30.8 pg (27.0-33.0); MCHC 34.4 % (32.0-36.0); MCV 89 fL (80-95); MPV 9.8 fL (8.0-11.0); Monocytes % 6.1 %; Platelet Count 242 10^3/uL (130-400); RBC 4.91 10^6/uL (4.36-5.78); RDW 12.7 % (11.8-14.1); RDW-SD 41.7 fL; WBC 9.06 10^3/uL (4.4-10.8)
[2025-01-03] MEDS: Normal Saline 500 ML 1000 ML IV (01:37)
[2025-01-03 01:42] LABS: ALT 47 U/L (16-63); AST 27 U/L (15-37); Albumin 3.4 g/dL (3.4-5.0); Alkaline Phosphatase 94 U/L (46-116); Anion Gap 10.9 mmol/L (3-11); BUN 19 mg/dL (7-18); Bilirubin, Total 0.4 mg/dL (0.2-1.0); CO2 24.1 mmol/L (21.0-32.0); CREATININE 1.4 mg/dL (0.70-1.30); Calcium 8.6 mg/dL (8.5-10.1); Chloride 101 mmol/L (98-107); Glucose 225 mg/dL (74-106); Lipase 27 U/L (<78); Magnesium 1.7 mg/dL; Potassium 4.1 mmol/L (3.5-5.1); Sodium 136 mmol/L (136-145)
[2025-01-03] MEDS: Omnipaque 350 MG/ML 100 ML BTL IJ (01:56)
[2025-01-03] MEDS: Normal Saline - Diluent 50 ML VIAL IJ (01:57)
--- NOTE | 2025-01-03 01:57 | DI.CT_ITS ---
Exam(s) CT ABDOMEN PELVIS W EXAM: CT ABDOMEN PELVIS W CLINICAL HISTORY: abdominal pain, vomiting. TECHNIQUE: Imaging Protocol: Axial computed tomography images with coronal and sagittal reformatted images were created and reviewed CONTRAST MATERIAL: Intravenous: Omnipaque-350 100cc Oral: None COMPARISON: CT CT ABDOMEN PELVIS W from 06/26/2021 FINDINGS: VISUALIZED LUNG BASES: Small 5 mm nodule the left lower lobe again noted. No pleural effusions.. ABDOMEN: There is mild amount of ascites now evident in the abdomen and pelvis, not previously present. LIVER: Liver is hypodense implying steatosis. There no discrete focal hepatic lesions identified. T here are no dilated intrahepatic ducts. GALLBLADDER/BILIARY: No obvious gallbladder pathology. CBD is not dilated. PANCREAS: Few small pancreatic calcifications are again noted. No evidence of pancreatic mass nor di latation pancreatic duct. No peripancreatic fluid nor streaking. SPLEEN: Surgically absent but again noted previously described regenerated see splenule, presently me asuring 8.6 x 6.7 cm, slightly larger than previous. Splenic vein is patent. Splenic and portal vei ns are patent. ADRENALS: No significant adrenal masses. KIDNEYS:No cysts evident. No solid renal masses. No calculi nor hydronephrosis.. ABDOMINAL AORTA: Abdominal aorta is not enlarged. LYMPH NODES:There is no retroperitoneal nor paraaortic adenopathy. ABDOMINAL WALL: There is an anterior abdominal wall slightly left of midline hernia which contains me senteric fat and small amount of fluid. No bowel loops within the hernia sac. GI: There is no evidence of bowel obstruction, free air, nor abscess. The colon is completely collapsed. Exhibits a fat halo sign. There is no evidence of small-bowel ob struction. PELVIS: GI: No evidence of appendicitis.No evidence of sigmoid diverticulitis. LYMPH NODES: There is no intrapelvic nor inguinal adenopathy. REPRODUCTIVE: Prostate size minimally prominent. There calcifications in both sides the prostate. S eminal vesicles appear unremarkable. URINARY BLADDER: No calculi nor obvious masses evident OSSEOUS: No fractures and no significant osseous lesions. Chronic degenerative disc disease L5-S1 level. No listhesis. IMPRESSION: 1. Compared to the prior CT scan of 2020 there is now ascites evident in the abdomen and pelvis (mild -moderate). 2. There is a left paracentral anterior abdominal wall hernia. The hernia sac measures 4 cm wide by 1.8 cm AP by 2.8 cm craniocaudal. There are any a sac does not contain bowel loops but does contain mesenteric fat and small amount of fluid 3. There is no evidence of bowel obstruction nor free air. However, the colon is collapsed and exhib its a fat halo sign throughout significant amount of its length. Correlation with any history of inf lammatory bowel disease recommended. No evidence of appendicitis nor diverticulitis. 4. Hepatic steatosis noted. No discrete focal hepatic lesions. 5. Degenerated splenule again noted. RADIATION DOSE DELIVERED: 914.65mGy.cm Total DLP DATA REPOSITORY: All CT scans at this facility are submitted to the National Radiology Data Registry (NRDR) Dose Index Registry (DIR) with the [employer] (ACR). RADIATION OPTIMIZATION: All CT scans at this facility use at least one of these dose optimization te chniques: automated exposure control; mA and/or kV adjustment per patient size (includes targeted exa ms where dose is matched to clinical indication); or iterative reconstruction.
[2025-01-03 02:02] LABS: Lactate 1.6 mmol/L (<or=2.0)
[2025-01-03] MEDS: cefTRIAXone 2 GM/50 ML BAG IVPB (02:19)
--- NOTE | 2025-01-03 02:32 | DI.VRAD_ITS ---
Addendum created by Wiley Christopher DO on 01/03/2025 4:14:48 AM EDT: Addendum to the report requested by site as the patient has stated he does not have a spleen. Images from present study as well as prior CT of abdomen and pelvis from June 26, 2021 reviewed. Both studies demonstrate a well-circumscribed structure consistent with small spleen or splenule with metallic surgical material along its superolateral border. Findings are consistent with prior splenectomy and regeneration of a splenule. Initial report created on 01/03/2025 2:32:14 AM EDT: PROCEDURE INFORMATION: Exam: CT Abdomen And Pelvis With Contrast Exam date and time: 01/03/2025 1:46 AM Age: 54 years old Clinical indication: Generalized; Abdominal pain, vomiting TECHNIQUE: Imaging protocol: Computed tomography of the abdomen and pelvis with contrast. Radiation optimization: All CT scans at this facility use at least one of these dose optimization techniques: automated exposure control; mA and/or kV adjustment per patient size (includes targeted exams where dose is matched to clinical indication); or iterative reconstruction. Contrast material: [id number]; Contrast volume: 100 ml; Contrast route: INTRAVENOUS (IV); COMPARISON: CT ABDOMEN PELVIS W 06/26/2021 7:27 PM FINDINGS: Liver: Fatty infiltration of the liver. Gallbladder and biliary ducts: Normal. No calcified stones. No ductal dilation. Pancreas: Normal. No ductal dilation. Spleen: Normal. No splenomegaly. Adrenal glands: Normal. No mass. Kidneys and ureters: Normal. No hydronephrosis. Stomach and bowel: Unremarkable. No obstruction. No mucosal thickening. Appendix: No evidence of appendicitis. Intraperitoneal space: Mild ascites. Vasculature: Unremarkable. No abdominal aortic aneurysm. Lymph nodes: Unremarkable. No enlarged lymph nodes. Urinary bladder: Unremarkable as visualized. Reproductive: Prominent prostate gland which measures 4.6 cm by 4.2 cm with prostatic calcifications. Bones/joints: Unremarkable. No acute fracture. Soft tissues: Small left paracentral abdominal wall hernia. IMPRESSION: 1. Ascites. 2. Fatty infiltration of the liver. 3. Small left paracentral abdominal wall hernia. 4. Mild enlargement of the prostate gland. Dictated and Authenticated by: Wiley Christopher MD. Orderin Kristen Nolan MD
[2025-01-03] MEDS: Normal Saline 1,000 ML 1000 ML IV (02:53)
--- NOTE | 2025-01-03 04:20 | W.PM.HP.N ---
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 Because of his fever he did have blood cultures performed and was initiated on IV vancomycin and ceftriaxone. There is no signs of sepsis the patient lower level pain persisted despite his diarrhea stopping and nausea vomiting subsiding with symptomatic treatment. He will be observed on IV hydration being slightly dehydrated with creatinine slightly up from baseline. Will continue his IV antibiotic therapy pending blood cultures within 24 hours and he improves she could be discharged home on modified oral antibiotics versus no antibiotics. This most likely is a viral gastroenteritis. He does appear to have some residual spleen on CT of the abdomen and his need for being cautious as if a splenic may be reevaluated by his PCP. He is a full code. (2) Fever: Status: Acute Assessment and plan: Blood cultures and urine culture when available. Continue IV antibiotic therapy. Symptomatic treatment. (3) Hyposplenism: Status: Chronic Assessment and plan: Patient does have a residual spleen or splenule and this may be functional to protect him from asplenia concerns. He can review this with his PCP and specialist. For now he is treating himself as asplenic. 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 (5) Acute hyperglycemia: Start date: 01/03/25 Status: Acute Assessment and plan: Patient has a history of prediabetic state and his hemoglobin A1c is above 6.5 at 6.9%. He should review his new diagnosis of type 2 diabetes mellitus with his physician. He does have some sequela of diabetes with his liver which also should be reviewed. (6) SWANN (nonalcoholic steatohepatitis): Status: Chronic Assessment and plan: Follow-up with PCP. He does have some ascites associated. He denies alcohol intake. (7) Tobacco abuse: Status: Chronic Assessment and plan: Should be advised cessation of tobacco use and follow-up with PCP. History of Present Illness History of Present Illness Chief Complaint: Abdominal pain and fever of 102 ?F with nausea and vomiting. 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 He is overweight and prediabetic by history but on no medications. Presents with sudden onset of abdominal pain in his lower abdomen with nausea and bilious vomiting with associated diarrhea denying any hematemesis, hematochezia or melena. He did have a fever over 102 ?F at home but no fevers since that 1 episode in the afternoon prior to presentation. Because of his asplenia he was told to be evaluated and having fever and did not have any oral antibiotics to take at home. In the ED he was afebrile he continued to have nausea and vomiting but responded to symptomatic care. He is on IV hydration with slight increase in his baseline creatinine. He did not appear toxic or septic. Because of his reported fever, he was initiated on ceftriaxone and vancomycin IV and was given IV hydration with normal saline. He was admitted for observation with blood cultures pending, urinalysis pending and for IV hydration with symptomatic treatment. He did not have any focalizing abdominal pain and this persisted but was improved. Imaging did not reveal any acute infectious process with CT of the abdomen and pelvis and chest x-ray. He was tachycardic but improving. He was not hypotensive. He is not hypoxic. VBG and lactic acid were reassuring as was the normal procalcitonin. Patient is a full code. Review of Systems Narrative: 13 point review of systems otherwise unrevealing or stable. Patient is overweight. He denies alcohol intake. 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 Prediabetes Cough Plantar fascial fibromatosis Posterior rhinorrhea Cervical radiculopathy Screening for malignant neoplasm of colon performed Screening for colon cancer Tobacco chew use Heel spur Bronchitis Acquired asplenia Hyperglycemia Plantar fasciitis Hyperlipidemia Rotator cuff syndrome of shoulder and allied disorders Deviated septum Hoarseness Surgical History History of colonoscopy (~07/2023) biopsies sent H/O splenectomy (~07/2023) Family History Mother Diabetes Social History Smoking/Tobacco Use Status: Current every day Tobacco Type: smokeless tobacco Smoking risk assessment performed?: Yes Alcohol Intake: never Drug use: Never Substance use type: does not use Housing: other Do you feel safe at home: Yes Do you feel safe in your relationship?: Yes Additional Social history: quit smoking couple years ago - chews Meds Allergies and Home Medications Allergies Allergy/AdvReac Type Severity Reaction Status Date / Time No Known Allergies Allergy Unverified 01/03/25 01:01 Exam Narrative Exam Narrative: General: Patient appears appropriate for age, moderate morbidly obese and mesomorphic, slight distress with his abdominal discomfort lying in bed. He is alert and oriented x 3. HEENT: Normocephalic, eyes with pupils equal and react to light symmetrically, extraocular movement intact and sclera anicteric. Oropharynx with dry mucosa and fair dentition. Neck: Supple without JVD. Back: To posture without CVA tenderness. Lungs: Clear to auscultation and percussion with no focalizing normal vesicular breath sounds. Rales or rhonchi. No expiratory wheeze. Heart: Tachycardic rate, normal rhythm with no peripheral murmur or gallop. Abdomen: Obese contour, soft palpation but slight guarding lower abdomen without rebound and no focal tenderness. No palpable hepatomegaly. Bowel sounds positive all quadrants. Genitalia/rectal: Exam deferred. Extremities: No clubbing, cyanosis or pitting edema. Peripheral pulses are full. Skin: Normal color, warm and dry. No bruising. Neuro: Cranial nerve II to XII gross intact, no focalizing motor deficits or tremor. Psych: Normal affect and mood. No abnormal thought processes. Remote and recent memory intact. Results Imaging Imaging Studies: Addendum created by Wiley Christopher DO on 01/03/2025 4:14:48 AM EDT: Addendum to the report requested by site as the patient has stated he does not have a spleen. Images from present study as well as prior CT of abdomen and pelvis from June 26, 2021 reviewed. Both studies demonstrate a well-circumscribed structure consistent with small spleen or splenule with metallic surgical material along its superolateral border. Findings are consistent with prior splenectomy and regeneration of a splenule. Initial report created on 01/03/2025 2:32:14 AM EDT: PROCEDURE INFORMATION: Exam: CT Abdomen And Pelvis With Contrast Exam date and time: 01/03/2025 1:46 AM Age: 54 years old Clinical indication: Generalized; Abdominal pain, vomiting COMPARISON: CT ABDOMEN PELVIS W 06/26/2021 7:27 PM FINDINGS: Liver: Fatty infiltration of the liver. Gallbladder and biliary ducts: Normal. No calcified stones. No ductal dilation. Pancreas: Normal. No ductal dilation. Spleen: Normal. No splenomegaly. Adrenal glands: Normal. No mass. Kidneys and ureters: Normal. No hydronephrosis. Stomach and bowel: Unremarkable. No obstruction. No mucosal thickening. Appendix: No evidence of appendicitis. Intraperitoneal space: Mild ascites. Vasculature: Unremarkable. No abdominal aortic aneurysm. Lymph nodes: Unremarkable. No enlarged lymph nodes. Urinary bladder: Unremarkable as visualized. Reproductive: Prominent prostate gland which measures 4.6 cm by 4.2 cm with prostatic calcifications. Bones/joints: Unremarkable. No acute fracture. Soft tissues: Small left paracentral abdominal wall hernia. IMPRESSION: 1. Ascites. 2. Fatty infiltration of the liver. 3. Small left paracentral abdominal wall hernia. 4. Mild enlargement of the prostate gland. Exam: XR Chest Exam date and time: 01/03/2025 4:57 AM Age: 54 years old Clinical indication: Fever with asplenia TECHNIQUE: Imaging protocol: Radiologic exam of the chest. Views: 1 view. COMPARISON: CR XR CHEST 2V PA LATERAL 11/18/2024 1:47 PM FINDINGS: Lungs: No focal consolidation seen. Pleural spaces: No large pleural effusion seen. Heart/Mediastinum: No cardiomegaly. Bones/joints: No acute abnormality. IMPRESSION: No acute findings to explain reported symptoms. Labs 01/03/25 01:07 01/03/25 04:38 Labs: Laboratory Results - last 24 hr 01/03/25 01/03/25 01:07 01:58 WBC 9.06 RBC 4.91 Hgb 15.1 Hct 43.9 MCV 89 MCH 30.8 MCHC 34.4 RDW 12.7 Plt Count 242 MPV 9.8 Immature Gran % 1.0 Neutrophils % 84.0 Lymphocytes % 7.4 Monocytes % 6.1 Eosinophils % 1.1 Basophils % 0.4 Nucleated RBC % 0.0 Absolute Neutrophils 7.61 H Absolute Lymphocytes 0.67 L Absolute Monocytes 0.55 Absolute Eosinophils 0.10 Absolute Basophils 0.04 VBG Lactate 1.6 Sodium 136 Potassium 4.1 Chloride 101 Carbon Dioxide 24.1 Anion Gap 10.9 BUN 19 H Creatinine 1.4 H Est GFR (CKD-EPI 2020) 60.10 Glucose 225 H Calcium 8.6 Magnesium 1.7 Total Bilirubin 0.4 AST 27 ALT 47 Alkaline Phosphatase 94 Total Protein 7.0 Albumin 3.4 Lipase 27 Last Vital Signs Temp 36.8 C 01/03/25 00:58 Pulse 95 H 01/03/25 04:01 Resp 20 01/03/25 04:01 BP 104/67 01/03/25 04:01 Pulse Ox 96 01/03/25 04:01 Time Spent Time spent with Patient: >75 minutes Time was spent: preparing to see the patient(eg.review tests), obtaining and/or reviewing separately otained hiistory, ordering medications,tests, procedures, referring, communicating with other health direct care worker, indepentently interpreting results, counseling the patient and care coordination
[2025-01-03 04:42] LABS: BE (Venous) -1 mmol/L (-2-3); HCO3 (Venous) 24 mmol/L (23-28); Lactate 0.9 mmol/L (<or=2.0); O2 Sat (Venous) 91 %; TCO2 (Venous) 22 mmol/L (24-29); pCO2 (Venous) 43 mmHg (41-51); pH (Venous) 7.36 (7.31-7.41); pO2 (Venous) 61 mmHg
[2025-01-03 04:57] LABS: Hemoglobin A1C 6.9 % (<5.7)
--- NOTE | 2025-01-03 04:58 | DI.RAD_ITS ---
Exam(s) XR PORTABLE CHEST AP EXAM: XR PORTABLE CHEST AP CLINICAL HISTORY: fever with asplenia. TECHNIQUE: 2D digital imaging was performed. COMPARISON: No exams were available for comparison FINDINGS: Single AP portable view. Heart size is upper normal. The mediastinum is not widened. Lungs are clear. No infiltrates nor obvious pleural effusions. In noted evidence of previous right shoulder labral surgery and degenerative changes in the glenohume ral joint IMPRESSION: No acute pulmonary findings on this single AP portable view of the chest. DATA REPOSITORY: RADIATION DOSE DELIVERED:
[2025-01-03 05:05] LABS: ALT 33 U/L (16-63); AST 22 U/L (15-37); Albumin 2.5 g/dL (3.4-5.0); Alkaline Phosphatase 69 U/L (46-116); Anion Gap 5.7 mmol/L (3-11); BUN 18 mg/dL (7-18); Bilirubin, Total 0.2 mg/dL (0.2-1.0); CO2 26.3 mmol/L (21.0-32.0); CREATININE 1.1 mg/dL (0.70-1.30); Calcium 7.4 mg/dL (8.5-10.1); Chloride 107 mmol/L (98-107); Estimated GFR 80.27 (mL/min/1.73m2); Glucose 148 mg/dL (74-106); Sodium 139 mmol/L (136-145); Total Protein 5.4 g/dL (6.4-8.2)
--- NOTE | 2025-01-03 05:08 | W.PC.ACHO ---
Registration Status: Primary Language: Preferred Language: ED Information & Data Chief Complaint Abd Prob 01/03/25 01:12 Triage Note PT states that he has lower 01/03/25 00:53 ABD pain CP and SOB that started at 3pm when he woke up. PT states that he took miraLAX and it did not help. PT states that he vomited earlier. 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 Prediabetes Cough Plantar fascial fibromatosis Posterior rhinorrhea Cervical radiculopathy Screening for malignant neoplasm of colon performed Screening for colon cancer Tobacco chew use Heel spur Bronchitis Acquired asplenia Hyperglycemia Plantar fasciitis Hyperlipidemia Rotator cuff syndrome of shoulder and allied disorders Deviated septum Hoarseness (Last Reviewed 01/03/25 @ 04:21 by Rodolfo Morel) History of colonoscopy (~07/2023) H/O splenectomy (~07/2023) Most Recent Vital Signs Temperature 36.8 C 01/03/25 00:58 Pulse 95 H 01/03/25 04:01 Pulse 97 H 01/03/25 04:01 Respiratory Rate 20 01/03/25 04:01 Blood Pressure 104/67 01/03/25 04:01 Blood Pressure Mean 78 01/03/25 04:01 Pulse Oximetry 96 01/03/25 04:01 Oxygen Delivery Method Room Air 01/03/25 00:53 Oxygen Flow Rate 0 01/03/25 00:53 Pain Level 10 01/03/25 00:58 Allergies No Known Allergies Allergy (Unverified 01/03/25 01:01) Active Medications Generic Name Dose Route Start Last Admin Trade Name Freq PRN Reason Stop Dose Admin Vancomycin HCl 1,750 mg/ 500 mls @ 250 mls/hr 01/03/25 02:00 01/03/25 02:52 Sodium Chloride IVPB 250 mls/hr Q12H MORGAN Administration Iohexol 100 ml 01/03/25 02:00 01/03/25 01:56 Omnipaque 350 Mg/Ml 100 Ml Btl IJ 02/02/25 23:59 100 ml DIRECTED MORGAN Administration Sodium Chloride 50 ml 01/03/25 02:00 01/03/25 01:57 Normal Saline - Diluent 50 Ml Vial IJ 50 ml .FOR DI USE MORGAN Administration IV IV Catheter Type [Left Saline Lock Antecubital] IV Catheter Gauge [Left 18 Antecubital] Diagnostics 01/03/25 01/03/25 01/03/25 Range/Units 04:41 04:38 01:58 WBC (4.4-10.8) 10^3/uL RBC (4.36-5.78) 10^6/uL Hgb (13.5-17.5) g/dL Hct (40.0-50.0) % MCV (80-95) fL MCH (27.0-33.0) pg MCHC (32.0-36.0) % RDW (11.8-14.1) % Plt Count (130-400) 10^3/uL MPV (8.0-11.0) fL Immature Gran % % Neutrophils % % Lymphocytes % % Monocytes % % Eosinophils % % Basophils % % Nucleated RBC % (0.0-0.3) % Absolute Neutrophils (1.2-6.7) 10^3/uL Absolute Lymphocytes (1.2-3.4) 10^3/uL Absolute Monocytes (0.1-0.8) 10^3/uL Absolute Eosinophils (0.0-0.7) 10^3/uL Absolute Basophils (0.0-0.2) 10^3/uL VBG pH 7.36 (7.31-7.41) VBG pCO2 43 (41-51) mmHg VBG pO2 61 mmHg VBG HCO3 24 (23-28) mmol/L VBG Total CO2 22 L (24-29) mmol/L VBG O2 Saturation 91 % VBG Base Excess -1 (-2-3) mmol/L VBG Lactate 0.9 1.6 (<or=2.0) mmol/L Sodium Pending (136-145) mmol/L Potassium Pending (3.5-5.1) mmol/L Chloride Pending (98-107) mmol/L Carbon Dioxide Pending (21.0-32.0) mmol/L Anion Gap Pending (3-11) mmol/L BUN Pending (7-18) mg/dL Creatinine Pending (0.70-1.30) mg/dL Est GFR (CKD-EPI 2020) Pending (mL/min/1.73m2) Glucose Pending (74-106) mg/dL Hemoglobin A1c 6.9 H (<5.7) % Calcium Pending (8.5-10.1) mg/dL Magnesium mg/dL Total Bilirubin Pending (0.2-1.0) mg/dL AST Pending (15-37) U/L ALT Pending (16-63) U/L Alkaline Phosphatase Pending (46-116) U/L Total Protein Pending (6.4-8.2) g/dL Albumin Pending (3.4-5.0) g/dL Lipase (<78) U/L Procalcitonin Pending COVID-19 Source Pending SARS-CoV-2 (PCR) Pending Influenza Type A (PCR) Pending Influenza Type B (PCR) Pending RSV (PCR) Pending 01/03/25 Range/Units 01:07 WBC 9.06 (4.4-10.8) 10^3/uL RBC 4.91 (4.36-5.78) 10^6/uL Hgb 15.1 (13.5-17.5) g/dL Hct 43.9 (40.0-50.0) % MCV 89 (80-95) fL MCH 30.8 (27.0-33.0) pg MCHC 34.4 (32.0-36.0) % RDW 12.7 (11.8-14.1) % Plt Count 242 (130-400) 10^3/uL MPV 9.8 (8.0-11.0) fL Immature Gran % 1.0 % Neutrophils % 84.0 % Lymphocytes % 7.4 % Monocytes % 6.1 % Eosinophils % 1.1 % Basophils % 0.4 % Nucleated RBC % 0.0 (0.0-0.3) % Absolute Neutrophils 7.61 H (1.2-6.7) 10^3/uL Absolute Lymphocytes 0.67 L (1.2-3.4) 10^3/uL Absolute Monocytes 0.55 (0.1-0.8) 10^3/uL Absolute Eosinophils 0.10 (0.0-0.7) 10^3/uL Absolute Basophils 0.04 (0.0-0.2) 10^3/uL VBG pH (7.31-7.41) VBG pCO2 (41-51) mmHg VBG pO2 mmHg VBG HCO3 (23-28) mmol/L VBG Total CO2 (24-29) mmol/L VBG O2 Saturation % VBG Base Excess (-2-3) mmol/L VBG Lactate (<or=2.0) mmol/L Sodium 136 (136-145) mmol/L Potassium 4.1 (3.5-5.1) mmol/L Chloride 101 (98-107) mmol/L Carbon Dioxide 24.1 (21.0-32.0) mmol/L Anion Gap 10.9 (3-11) mmol/L BUN 19 H (7-18) mg/dL Creatinine 1.4 H (0.70-1.30) mg/dL Est GFR (CKD-EPI 2020) 60.10 (mL/min/1.73m2) Glucose 225 H (74-106) mg/dL Hemoglobin A1c (<5.7) % Calcium 8.6 (8.5-10.1) mg/dL Magnesium 1.7 mg/dL Total Bilirubin 0.4 (0.2-1.0) mg/dL AST 27 (15-37) U/L ALT 47 (16-63) U/L Alkaline Phosphatase 94 (46-116) U/L Total Protein 7.0 (6.4-8.2) g/dL Albumin 3.4 (3.4-5.0) g/dL Lipase 27 (<78) U/L Procalcitonin COVID-19 Source SARS-CoV-2 (PCR) Influenza Type A (PCR) Influenza Type B (PCR) RSV (PCR) 01/03/25 01:29 Blood Culture - Pending Blood 01/03/25 01:23 Blood Culture - Pending Blood Intake and Output - 24 Hour Total 01/03/25 00:51 thru 01/03/25 03:53 Intake Total 1650 Balance 1650 Weight 115.349 kg Intake: IV 1650 Falls Risk Assessment History of Falls No History 01/03/25 00:58 Contributing Factors No Factors 01/03/25 00:58 Ambulatory Aids Independent 01/03/25 00:58 Tubes/Lines None 01/03/25 00:58 Gait Evaluation No gait disturbance 01/03/25 00:58 Cognition No cognitive impairment 01/03/25 00:58 Fall Total Score 0 01/03/25 00:58 Level of Risk Standard/Low Risk 01/03/25 00:58 Problems (Last Reviewed 01/03/25 @ 04:21 by Rodolfo Morel) SWANN (nonalcoholic steatohepatitis) (Chronic) Fever (Acute) Acute hyperglycemia (Acute) Hyposplenism (Chronic) Gastroenteritis (Acute) Tobacco abuse (Chronic) v v v v v v v v v Sending and/or Receiving Nurses: Please use comment section below to note any information pertinent to the patient hand-off not included above. Information / Comments: Report taken from [employer] Willard, Patient was admitted with complaints of abdominal and chest pain, SOB and took maalox prior to admit and has episode of diarrhea and nausea and vomiting. Pt. is alert and oriented. Been tachy while in ER but subsided to 100;s now. Has abdominal tenderness and all questions answered appropriately. Report received from:
[2025-01-03 05:24] LABS: Procalcitonin 0.28 ng/mL
--- NOTE | 2025-01-03 05:43 | DI.VRAD_ITS ---
PROCEDURE INFORMATION: Exam: XR Chest Exam date and time: 01/03/2025 4:57 AM Age: 54 years old Clinical indication: Fever with asplenia TECHNIQUE: Imaging protocol: Radiologic exam of the chest. Views: 1 view. COMPARISON: CR XR CHEST 2V PA LATERAL 11/18/2024 1:47 PM FINDINGS: Lungs: No focal consolidation seen. Pleural spaces: No large pleural effusion seen. Heart/Mediastinum: No cardiomegaly. Bones/joints: No acute abnormality. IMPRESSION: No acute findings to explain reported symptoms. Dictated and Authenticated by: Lela Alba MD. Orderin Adriel Reynolds MD
[2025-01-03 05:46] LABS: COVID-19 PCR Negative (Negative); Influenza A PCR Negative (Negative); Influenza B PCR Negative (Negative); RSV PCR Negative (Negative)
[2025-01-03 05:48] LABS: Source Nasopharynx
--- NOTE | 2025-01-03 05:55 | NUR.NOTE ---
Access chart to determine the number of EKG orders to the number of EKGs in [facility]; with Maria Del Rosario Forte. Nursing Note:
[2025-01-03 05:59] LABS: Bilirubin Negative (Negative); Blood Negative (Negative); Clarity Clear (Clear); Glucose 100 mg/dL (Negative); Ketones Negative (Negative); Leukocyte Esterase Negative (Negative); Nitrite Negative (Negative); Specific Gravity 1.015 (1.005-1.025); Urobilinogen 0.2 mg/dL (Up to 0.2); pH 5.5 (5-8)
[2025-01-03 06:06] LABS: Bacteria Rare HPF (Negative); C & S Indicated? No; Casts Negative LPF (Negative); Crystals Negative HPF (Negative); Epithelial Cells Negative HPF (Negative); Mucus Negative (Negative); RBC 0-2 HPF (0-2); WBC 0-2 HPF (0-5)
--- NOTE | 2025-01-03 08:38 | PDOC.CMIN ---
Date of service: 01/03/25 Time of Service: 08:38 Care Management Initial Assmt Initial Assessment Reason for Hospitalization: Gastroenteritis with Fever Functional Status/Living Situation Patient Presentation: Leonardo was awake and sitting up in bed when CM met with him, talking to his Ella via phone. Both are pleasant and easily engage in conversation. Leonardo and Ella live in [facility] with their 3 kids. He is active and independent at baseline and works at [employer] and requests a letter for work on discharge. 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 Because of this, he cautions that it's more difficult getting him on the right antibiotic. No community concerns or discharge needs are identified, CM will follow. Town of Residence: [place] Resides with: Child (3 Children) and Spouse ( Ella) Significant Other/Family: Local Natural Supports: Supportive family Employment Status: Employed ([employer]) Instrumental Activities of Daily Living (ADLs): Independent Medications Medication Management: No Issues/Barriers identified Physical Functioning/Mobility Assistive Device: None Advance Directives Advance Directives: Do you have an Advance Directive: N 08/06/21 09:59 AD On File at [facility]: N 08/06/21 09:59 Date Asked 01/03/25 01/03/25 05:15 AD Date Reviewed COLST On File at [facility] COLST Date Scanned Code Status Resuscitation Status Full Code Portal Pt does not currently have a portal and education provided: Yes Insurance Coverage/Financial Issues Insurance: [facility] - [id number] Financial Issues: None identified Care Team Visit Care Team Role Provider Type Mihaela Swanson Primary Care Provider NON-[facility] STAFF PHYSICIAN An Peterson MD Emergency Provider [facility] STAFF PHYSICIAN Rodoflo Morel Admit Provider NON-[facility] STAFF PHYSICIAN Attending Provider Other: Pharmacy [id number] Discharge Potential Discharge Needs: PCP F/U Appt Anticipated Barriers to Discharge: None Identified Patient/Family Education Needs: Review discharge instructions, discuss Ask Me Three Transportation: Private vehicle Plan: Anticipate, Leonardo will be discharged home via private vehicle with family when medically ready. Leonardo will follow up with this community providers and discharge plan of care as directed. CM will continue to follow and support discharge planning considerations, if identified. Social Determinants of Health Screening Social Determinants of Health last assessed: 01/03/25 Will the Patient Participate in the Screening?: Yes Do you worry about having a steady place to live?: no Problems where you live: no known problems In the past 12 months, have you had to go without electric, gas, oil or water in your home?: no Have you or anyone in your house had to go without enough food to eat?: no Has lack of transportation kept you from medical appointments or from doing things needed for daily living?: no Has anyone in your life made you feel unsafe or unsupported?: no How hard is it for you to pay for the very basics like food, housing, medical care, and heating? Would you say it is:: Not hard at all Do you want help finding or keeping work or a job?: I do not need or want help If for any reason you need help with day-to-day activities such as bathing, preparing meals, shopping, managing finances, etc., do you get the help you need?: I don?t need any help How often do you feel lonely or isolated from those around you?: Never Do you speak a language other than Korean at home?: Yes Does the patient want assistance with any of the above?: No Health Related Social Needs Health related social needs: education (Z55.6) PFSH All Active Problems (Updated 01/03/25 @ 11:51 by Liliya Ferrell APRN) Severe sepsis (Acute) SWANN (nonalcoholic steatohepatitis) (Chronic) Fever (Acute) Acute hyperglycemia (Acute) Hyposplenism (Chronic) Gastroenteritis (Acute) Asplenia (Acute) Carpal tunnel syndrome on both sides (Acute) Medial epicondylitis of both elbows (Acute) Lateral epicondylitis of both elbows (Acute) Normal colonoscopy (Acute ~08/05/23) Diarrhea (Acute) Enteritis (Acute) 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) Tobacco abuse (Chronic) Medical History Influenza 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 Prediabetes Cough Plantar fascial fibromatosis Posterior rhinorrhea Cervical radiculopathy Screening for malignant neoplasm of colon performed Screening for colon cancer Tobacco chew use Heel spur Bronchitis Acquired asplenia Hyperglycemia Plantar fasciitis Hyperlipidemia Rotator cuff syndrome of shoulder and allied disorders Deviated septum Hoarseness Surgical History History of colonoscopy (~07/2023) biopsies sent H/O splenectomy (~07/2023) Family History Mother Diabetes Social History Smoking/Tobacco Use Status: Current every day Tobacco Type: smokeless tobacco Smoking risk assessment performed?: Yes Alcohol Intake: never Drug use: Never Substance use type: does not use Housing: other Do you feel safe at home: Yes Do you feel safe in your relationship?: Yes Additional Social history: quit smoking couple years ago - chews
[2025-01-03] MEDS: Enoxaparin 40 MG/0.4 ML SYR SC (10:08)
[2025-01-03] MEDS: Normal Saline Flush 10 ML SYR IVP (10:09)
--- NOTE | 2025-01-03 11:24 | PHA.REVIEW2 ---
Pharmacy Admission Review Admission Clinical Review Admission Pharmacy Review: Fever (Acute) Acute hyperglycemia (Acute) Gastroenteritis (Acute) No Known Allergies Allergy (Unverified 01/03/25 01:01) Resuscitation Status Full Code Height 5 ft 7 in Weight 115.349 kg Pharmacy Admission Review Renal Dosing Renal Dosing: BUN 18 mg/dL (7-18) 01/03/25 04:38 Creatinine 1.1 mg/dL (0.70-1.30) 01/03/25 04:38 Medications needing adjustments: Reviewed (CrCl 94.25 mL/min) List of meds needing interventions: Current medications are okay Anticoagulation Anticoagulation: Hgb 15.1 g/dL (13.5-17.5) 01/03/25 01:07 Hct 43.9 % (40.0-50.0) 01/03/25 01:07 Plt Count 242 10^3/uL (130-400) 01/03/25 01:07 Creatinine 1.1 mg/dL (0.70-1.30) 01/03/25 04:38 DVT Prophylaxis: Reviewed Medications: Enoxaparin (40mg daily) Relevant Labs Relevant Labs: Sodium 139 mmol/L (136-145) 01/03/25 04:38 Potassium 4.0 mmol/L (3.5-5.1) 01/03/25 04:38 Chloride 107 mmol/L (98-107) 01/03/25 04:38 Magnesium 1.7 mg/dL 01/03/25 01:07 Electrolytes, C-Reactive P, ESR: Reviewed DM Control DM Control: Glucose 148 mg/dL (74-106) H 01/03/25 04:38 Hemoglobin A1c 6.9 % (<5.7) H 01/03/25 04:38 DM Control: Reviewed Insulin Dosing, Diabetic Medication: No medications currently, seems this is a new diagnosis per H+P. Cardiac Review BP, HR, EF%: Reviewed (BP WNL, HR 108) QTc Review QTc: Reviewed (EKG report pending) IV to PO Switch IV Medications: Reviewed (ceftriaxone and vancomycin) Home Meds Home Med List reviewed: Reviewed Relevent Home Meds Not ordered & why?: No active home meds listed Current Meds Current Medication Order Review: Intervened Comments: Added IV access order set Pharmacy Antibiotic Review Relevant Labs: Relevant Labs 01/03/25 04:38 Procalcitonin 0.28 WBC 9.06 10^3/uL (4.4-10.8) 01/03/25 01:07 Procalcitonin 0.28 ng/mL 01/03/25 04:38 Temperature 38.7 C 1103 Temperature 36.6 C 0733 Temperature 36.2 C 0540 Temperature 36.2 C 0519 Temperature 36.8 C 0058 Temperature 36.9 C 0053 Pharmacy Antibiotic Activity: C/S review and Reviewed, no change Comments: Patient is on ceftriaxone and vancomycin, day 1, for gastroenteritis. Unsure of indication for vancomycin, provider looking into it and may discontinue order. Current dose is 1250mg q12h with predicted AUC of 521 and trough of 17.1. Level ordered today for 1800. Blood cultures and repeat WBC level pending.
--- NOTE | 2025-01-03 11:30 | W.PM.PROGNOT ---
Date of Service Date of service: 01/03/25 Time of Service: 11:30 Assessment and Plan Assessment and plan (1) Severe sepsis: Status: Acute Assessment and plan: Sepsis criteria: presented with fever at 38.3, tachycardia HR 108, tachypnea RR 24 with nausea vomiting -source most likely GI infection Severe as Cr at 1.4 from baseline 1.1 reflecting decreased organ perfusion And as below (2) Gastroenteritis: Start date: 01/03/25 Status: Acute Assessment and plan: Asplenia by history with fever Initally on vanco and ceftriaxone Will stop vancomycin Will start flagyl Manage antibitics as per Cx results If needed based on Cx result can go home on Augmentin with near total splenectomy his 20s secondary s/p trauma Might be viral gastroenteritis as procal was 0.28 ABD pain persisting despite his diarrhea stopping Nausea vomiting subsiding with symptomatic treatment. Continue IV hydration Stool PCR Residual spleen on CT of the abdomen and his need for being cautious as if asplenia may be reevaluated by his PCP. BMP in AM (3) Fever: Status: Acute Assessment and plan: Blood cultures pending urine culture when available. Continue IV antibiotic therapy and symptomatic treatment. (4) Hyposplenism: Status: Chronic Assessment and plan: Patient does have a residual spleen or splenule and this may be functional to protect him from asplenia concerns. He can review this with his PCP and specialist. 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 (6) Acute hyperglycemia: Start date: 01/03/25 Status: Acute Assessment and plan: Patient has a history of prediabetic state and his hemoglobin A1c is above 6.5 at 6.9%. He should review his new diagnosis of type 2 diabetes mellitus with his physician. He does have some sequela of diabetes with his liver which also should be reviewed. Fingersticks AC and HS with SSI coverage (7) SWANN (nonalcoholic steatohepatitis): Status: Chronic Assessment and plan: Outpatient follow-up with PCP. No ascites as per CT associated. Denies alcohol intake. (8) Tobacco abuse: Status: Chronic Assessment and plan: Advised on smoking cessation and follow-up with PCP. Discussed with Dr. Mcnamara Exam Narrative Exam Narrative: Constitutional The patient is sitting in chair/ lying in bed comfortable and cooperative during the interview. The patient is well groomed without acute distress and has average body habitus/is obese/ is thin. HENMT: Head is atraumatic, normocephalic, no lymphadenopathy. Facial structures with normal appearance Eyes: Well aligned, intact ROM Neck: Normal ROM, no meningeal signs Neuro:alert and oriented to self, person, place time and situation. No neurological focal deficit, PERRLA Chest:Chest is symmetrical and normal appearance Resp: Normal respiratory pattern, speaks in full sentences, unlabored breathing, clear lung bilaterally Cardio: regular rhythm, S1, S2, no murmur, capillary refill<3 sec., bilateral radial and dorsalis pedis pulses are positive, palpable GI: Abdomen is not distended, soft and non tender, bowel sounds are present : Negative Costovertebral angle tenderness, no bladder distension Back/spine/Pelvis: No back tenderness, normal alignment Integumentary: No skin lesions or rash Extremities: strength 5/5 to bilateral lower and upper extremities Psych: RASS 0, congruent mood and normal affect. Objective Last Vital Signs Temp 38.7 C H 01/03/25 11:03 Pulse 108 H 01/03/25 11:03 Resp 24 01/03/25 11:03 BP 136/87 01/03/25 11:03 Pulse Ox 95 01/03/25 11:03 Laboratory Results - last 24 hr 01/03/25 01/03/25 01/03/25 01:07 01:58 04:38 WBC 9.06 RBC 4.91 Hgb 15.1 Hct 43.9 MCV 89 MCH 30.8 MCHC 34.4 RDW 12.7 Plt Count 242 MPV 9.8 Immature Gran % 1.0 Neutrophils % 84.0 Lymphocytes % 7.4 Monocytes % 6.1 Eosinophils % 1.1 Basophils % 0.4 Nucleated RBC % 0.0 Absolute Neutrophils 7.61 H Absolute Lymphocytes 0.67 L Absolute Monocytes 0.55 Absolute Eosinophils 0.10 Absolute Basophils 0.04 VBG pH 7.36 VBG pCO2 43 VBG pO2 61 VBG HCO3 24 VBG Total CO2 22 L VBG O2 Saturation 91 VBG Base Excess -1 VBG Lactate 1.6 0.9 Sodium 136 139 Potassium 4.1 4.0 Chloride 101 107 Carbon Dioxide 24.1 26.3 Anion Gap 10.9 5.7 BUN 19 H 18 Creatinine 1.4 H 1.1 Est GFR (CKD-EPI 2020) 60.10 80.27 Glucose 225 H 148 H Hemoglobin A1c 6.9 H Calcium 8.6 7.4 L Magnesium 1.7 Total Bilirubin 0.4 0.2 AST 27 22 ALT 47 33 Alkaline Phosphatase 94 69 Total Protein 7.0 5.4 L Albumin 3.4 2.5 L Lipase 27 Procalcitonin 0.28 Urine Color Urine Clarity Urine pH Ur Specific [place] Urine Protein Urine Ketones Urine Blood Urine Nitrite Urine Bilirubin Urine Urobilinogen Ur Leukocyte Esterase Urine RBC Urine WBC Ur Epithelial Cells Urine Crystals Urine Bacteria Urine Casts Urine Mucus Ur Culture Indicated? Urine Glucose Random Vancomycin COVID-19 Source SARS-CoV-2 (PCR) Influenza Type A (PCR) Influenza Type B (PCR) RSV (PCR) 01/03/25 01/03/25 01/03/25 05:05 05:32 12:30 WBC RBC Hgb Hct MCV MCH MCHC RDW Plt Count MPV Immature Gran % Neutrophils % Lymphocytes % Monocytes % Eosinophils % Basophils % Nucleated RBC % Absolute Neutrophils Absolute Lymphocytes Absolute Monocytes Absolute Eosinophils Absolute Basophils VBG pH VBG pCO2 VBG pO2 VBG HCO3 VBG Total CO2 VBG O2 Saturation VBG Base Excess VBG Lactate Sodium Potassium Chloride Carbon Dioxide Anion Gap BUN Creatinine Est GFR (CKD-EPI 2020) Glucose Hemoglobin A1c Calcium Magnesium Total Bilirubin AST ALT Alkaline Phosphatase Total Protein Albumin Lipase Procalcitonin Urine Color Yellow Urine Clarity Clear Urine pH 5.5 Ur Specific [place] 1.015 Urine Protein 30 H Urine Ketones Negative Urine Blood Negative Urine Nitrite Negative Urine Bilirubin Negative Urine Urobilinogen 0.2 Ur Leukocyte Esterase Negative Urine RBC 0-2 Urine WBC 0-2 Ur Epithelial Cells Negative Urine Crystals Negative Urine Bacteria Rare Urine Casts Negative Urine Mucus Negative Ur Culture Indicated? No Urine Glucose 100 H Random Vancomycin Cancelled COVID-19 Source Nasopharynx SARS-CoV-2 (PCR) Negative Influenza Type A (PCR) Negative Influenza Type B (PCR) Negative RSV (PCR) Negative
[2025-01-03 12:29] LABS: Magnesium 1.8 mg/dL
[2025-01-03 12:45] LABS: INR 1.1 (0.9-1.1); Prothrombin Time 10.7 sec (9.1-11.1)
[2025-01-03] MEDS: metroNIDAZOLE 500 MG/100 ML BAG 100 MG IVPB (12:56)
--- NOTE | 2025-01-03 13:58 | CHAPLAIN ---
I had a brief visit with Leonardo. He said he's doing well. His was in visiting earlier this morning and left to care for their kids.
--- NOTE | 2025-01-03 14:06 | W.INDIABCONS ---
Date of service: 01/03/25 Time of Service: 15:25 Diabetes Inpatient Consult Reason for Visit: recieved consult regarding diabetes education/mgt DESCRIPTION/ASSESSMENT: Leonardo admitted after having lower abd pain, chest pain and SOB and found to meet sepsis criteria with fever and also hyperglycemia with random glucose at 225. PT with hx of asplenia and SWANN and class II obesity per current BMI. Symptoms for fever and diarrhea are being treated. Pt ordered for correction insulin TID and is on consistent CHO diet this admission (and low sodium). Electrolyte labs wnl today, calcium 7.4 - would recommend vitamin D lab as pt with no home supplement and risk for deficiency this time of year and with greater adiposity. Low total protein and albumin lab today. A1C now 6.9 % and consistent with DMII diagnosis. Met with Leonardo today - he was laying in bed. I brought up his elevated A1c and he seemed to think it would go down after discharge - that he would drink a lot of water and it will resolve. I impressed upon him that this is diabetes and will get worse if he doesn't address it. he confirms his mother was dx with diabetes and he confirms he knows about fatty liver problem - I tied these together as part of the same issue. He did acknowledge he has a significant soda habit and with Soha Acuña. INTERVENTION: Leonardo seemed to grasp the message I was trying to convey. I told him meds weren't necessary at this time if he could make some significant changes like decreasing added sugar and refined starches and lower saturated fat intake and generally lose about 20lbs and get more active. I gave my card and some supporting handouts for eating a balance plate. Will visit with him tomorrow to see if he has any questions and offer more education. He took my card and expressed interest in working together in outpatient setting regarding diet changes. PLAN: will monitor glucose/labs, weight, po intake Time Spent in Nutritional Counseling and Treatment: 15 minutes
[2025-01-03] MEDS: cefTRIAXone 1 GM/50 ML BAG IVPB (21:38)
[2025-01-04 03:36] VITALS: BP 116/84; PULSE 87; RESP 18; TEMP 36.4; O2SAT 90
[2025-01-04 06:40] LABS: Abs Immature Grans 0.04 10^3/uL (0.0-0.06); Absolute Basophil Count 0.03 10^3/uL (0.0-0.2); Absolute Eosinophil Count 0.92 10^3/uL (0.0-0.7); Absolute Lymphocyte Count 2.24 10^3/uL (1.2-3.4); Absolute Monocyte Count 0.54 10^3/uL (0.1-0.8); Absolute Neutrophil Count 2.71 10^3/uL (1.2-6.7); Basophils % 0.5 %; Eosinophils % 14.2 %; HCT 40.9 % (40.0-50.0); HGB 13.7 g/dL (13.5-17.5); Immature Grans % 0.6 %; Lymphocytes % 34.6 %; MCH 30.4 pg (27.0-33.0); MCHC 33.5 % (32.0-36.0); MCV 91 fL (80-95); MPV 9.8 fL (8.0-11.0); Monocytes % 8.3 %; Neutrophils % 41.8 %; Platelet Count 195 10^3/uL (130-400); RDW-SD 43.6 fL; WBC 6.48 10^3/uL (4.4-10.8)
[2025-01-04 07:24] LABS: ALT 37 U/L (16-63); AST 30 U/L (15-37); Albumin 3.2 g/dL (3.4-5.0); Alkaline Phosphatase 76 U/L (46-116); Anion Gap 7.5 mmol/L (3-11); BUN 12 mg/dL (7-18); Bilirubin, Total 0.4 mg/dL (0.2-1.0); CO2 29.5 mmol/L (21.0-32.0); Calcium 8.6 mg/dL (8.5-10.1); Chloride 104 mmol/L (98-107); Glucose 102 mg/dL (74-106); Potassium 4.1 mmol/L (3.5-5.1); Sodium 141 mmol/L (136-145); Total Protein 6.7 g/dL (6.4-8.2)
[2025-01-04 07:35] VITALS: BP 120/93; PULSE 70; RESP 18; TEMP 37.1; O2SAT 92
[2025-01-04] MEDS: Enoxaparin 40 MG/0.4 ML SYR SC (08:29)
--- NOTE | 2025-01-04 08:35 | PDOC.CMPRO ---
Date of service: 01/04/25 Time of Service: 08:35 Care Management Progress Note Progress Note Text Progress Note Text: Leonardo continues to be closely monitored and treated for Gastroenteritis. His diet is being advanced as tolerated, he denies N/V and feeling much better than when he first came in. Per Provider, Leonardo will likely be medically ready for discharge. Discharge planning remains the same and he will need a letter for work on discharge. No new services are indicated at this time. CM will follow. Discharge Potential Discharge Needs: PCP F/U Appt Anticipated Barriers to Discharge: None Identified Patient/Family Education Needs: Review discharge instructions, discuss Ask Me Three Transportation: Private vehicle Plan: Anticipate, Leonardo will be discharged home via private vehicle with his when medically ready. Leonardo will follow up with this community providers and discharge plan of care as directed. CM will continue to follow and support discharge planning considerations, if identified. Social Determinants of Health Screening Social Determinants of Health last assessed: 01/04/25 Will the Patient Participate in the Screening?: Yes Do you worry about having a steady place to live?: no Problems where you live: no known problems In the past 12 months, have you had to go without electric, gas, oil or water in your home?: no Have you or anyone in your house had to go without enough food to eat?: no Has lack of transportation kept you from medical appointments or from doing things needed for daily living?: no Has anyone in your life made you feel unsafe or unsupported?: no How hard is it for you to pay for the very basics like food, housing, medical care, and heating? Would you say it is:: Not hard at all Do you want help finding or keeping work or a job?: I do not need or want help If for any reason you need help with day-to-day activities such as bathing, preparing meals, shopping, managing finances, etc., do you get the help you need?: I don?t need any help How often do you feel lonely or isolated from those around you?: Never Do you speak a language other than Maltese at home?: Yes Does the patient want assistance with any of the above?: No Health Related Social Needs Health related social needs: education (Z55.6)
[2025-01-04 11:16] VITALS: BP 130/70; PULSE 56; RESP 16; TEMP 37; O2SAT 95
[2025-01-04] MEDS: metroNIDAZOLE 500 MG/100 ML BAG 100 MG IVPB ×2 (14:48→23:13)
[2025-01-04] MEDS: Normal Saline Flush 10 ML SYR IVP ×3 (14:48→23:13)
[2025-01-04 16:03] VITALS: BP 130/79; PULSE 100; RESP 15; TEMP 36.7; O2SAT 95
--- NOTE | 2025-01-04 17:02 | W.PM.PROGNOT ---
Date of Service Date of service: 01/04/25 Time of Service: 14:00 Assessment and Plan Assessment and plan (1) Sepsis: Status: Acute Assessment and plan: Sepsis met with temp 38.7, tachycardia HR 106 tachypnea RR 31 with GI source of infection on admission And as below (2) Gastroenteritis: Start date: 01/04/25 Status: Acute Assessment and plan: With fever nausea vomiting in the setting of aslepnia Continue antibiotics: now on ceftriaxone and flagyl (3) Fever: Status: Acute Assessment and plan: Blood cultures negative UA negative fever 38 last night (4) Hyposplenism: Status: Chronic Assessment and plan: Residual spleen or splenule and this may be functional to protect him from asplenia concerns. F/u OPT with his PCP and specialist. As below (5) H/O splenectomy: Assessment and plan: S/p traumatic splenectomy 30 years ago- still treating as aslepnic during this admission (6) Acute hyperglycemia: Start date: 01/03/25 Status: Acute Assessment and plan: Hemoglobin A1c 6.9% now meeting diabetic criteria F/U with PC for new diagnosis of type 2 diabetes mellitus He does have some sequela of diabetes with his liver which also should be reviewed. (7) SWANN (nonalcoholic steatohepatitis): Status: Chronic Assessment and plan: Follow-up outpatient. mild amount of ascites now evident in the abdomen and pelvis, denied alcohol intake. (8) Tobacco abuse: Status: Chronic Assessment and plan: PRN NRT/follow-up with PCP. discussed with Dr. Mcnamara Subjective Subjective Patient reports: no new complaints, feels better, pain is less, tolerating liquids well, voiding w/o difficulty, flatus and other (no further night sweats); denies no bowel movement, diarrhea, nausea, vomiting, shortness of breath or fever Exam Narrative Exam Narrative: Constitutional The patient is without acute distress, HENMT: Head is atraumatic, normocephalic, no lymphadenopathy. Facial structures with normal appearance Eyes: Well aligned, intact ROM, non-icteric Neuro:alert and oriented to self, person, place time and situation. Chest:Chest is symmetrical and normal appearance Resp: Normal respiratory pattern, speaks in full sentences, unlabored breathing, clear lung bilaterally Cardio: regular rhythm, S1, S2, no murmur GI: Abdomen is is large, tympanic, not distended, soft and non tender, bowel sounds are present : Negative Costovertebral angle tenderness, no bladder distension Back/spine/Pelvis: No back tenderness, normal alignment Integumentary: No skin lesions or rash Extremities: strength 5/5 to bilateral lower and upper extremities Psych: RASS 0, congruent mood and normal affect. Objective Last Vital Signs Temp 36.7 C 01/04/25 16:03 Pulse 100 H 01/04/25 16:03 Resp 15 01/04/25 16:03 BP 130/79 01/04/25 16:03 Pulse Ox 95 01/04/25 16:03 Laboratory Results - last 24 hr 01/04/25 06:02 WBC 6.48 RBC 4.50 Hgb 13.7 Hct 40.9 MCV 91 MCH 30.4 MCHC 33.5 RDW 13.0 Plt Count 195 MPV 9.8 Immature Gran % 0.6 Neutrophils % 41.8 Lymphocytes % 34.6 Monocytes % 8.3 Eosinophils % 14.2 Basophils % 0.5 Nucleated RBC % 0.0 Absolute Neutrophils 2.71 Absolute Lymphocytes 2.24 Absolute Monocytes 0.54 Absolute Eosinophils 0.92 H Absolute Basophils 0.03 Sodium 141 Potassium 4.1 Chloride 104 Carbon Dioxide 29.5 Anion Gap 7.5 BUN 12 Creatinine 1.0 Est GFR (CKD-EPI 2020) 90.00 Glucose 102 Calcium 8.6 Total Bilirubin 0.4 AST 30 ALT 37 Alkaline Phosphatase 76 Total Protein 6.7 Albumin 3.2 L Time Spent with Patient Time Spent with Patient: >50 minutes Time was spent: preparing to see the patient(eg.review tests), obtaining and/or reviewing separately otained hiistory, ordering medications,tests, procedures, referring, communicating with other health landcare facilitator, indepentently interpreting results, counseling the patient and care coordination
[2025-01-04 19:25] VITALS: BP 126/85; PULSE 100; RESP 15; TEMP 37.1; O2SAT 96
[2025-01-04] MEDS: cefTRIAXone 1 GM/50 ML BAG IVPB (22:32)
[2025-01-04] MEDS: Milk of Magnesia 30 ML CUP PO (22:33)
[2025-01-04] MEDS: Mylanta Suspension 30 ML CUP PO (22:33)
[2025-01-04] MEDS: Docusate Sodium 100 MG CAP PO (22:33)
[2025-01-04 23:24] VITALS: BP 138/72; PULSE 101; RESP 15; TEMP 36.7; O2SAT 97
[2025-01-05 04:20] VITALS: BP 111/72; PULSE 84; RESP 15; TEMP 36.8; O2SAT 95
[2025-01-05] MEDS: metroNIDAZOLE 500 MG/100 ML BAG 100 MG IVPB (05:31)
[2025-01-05] MEDS: Normal Saline Flush 10 ML SYR IVP ×2 (05:32→08:10)
[2025-01-05 06:06] LABS: Abs Immature Grans 0.03 10^3/uL (0.0-0.06); HCT 37.8 % (40.0-50.0); HGB 12.9 g/dL (13.5-17.5); MCH 30.5 pg (27.0-33.0); MCHC 34.1 % (32.0-36.0); MCV 89 fL (80-95); MPV 10.2 fL (8.0-11.0); Platelet Count 192 10^3/uL (130-400); RBC 4.23 10^6/uL (4.36-5.78); RDW 12.5 % (11.8-14.1); RDW-SD 41.4 fL; WBC 6.39 10^3/uL (4.4-10.8)
[2025-01-05 06:09] LABS: Absolute Eosinophil Count 0.32 10^3/uL (0.0-0.7); Absolute Monocyte Count 0.77 10^3/uL (0.1-0.8); Absolute Neutrophil Count 2.81 10^3/uL (1.2-6.7); Bands % 3 %
[2025-01-05 06:10] LABS: Absolute Lymphocyte Count 2.49 10^3/uL (1.2-3.4); Atypical Lymphocytes % 6 %
[2025-01-05 06:11] LABS: Diff Comment Manual Differential; RBC Morphology Normal
[2025-01-05] MEDS: Enoxaparin 40 MG/0.4 ML SYR SC (08:09)
[2025-01-05 08:37] VITALS: BP 124/82; PULSE 62; RESP 16; TEMP 36; O2SAT 94
[2025-01-05 10:33] LABS: Calculated LDL 112 mg/dL (<100); Cholesterol 163 mg/dL (<200); HDL Cholesterol 30 mg/dL (>or=40); Triglyceride 109 mg/dL (<150)
--- NOTE | 2025-01-05 11:04 | DSE_ITS ---
Date of service: 01/05/25 Time of Service: 11:04 DS: Diagnosis Discharge Diagnosis (1) Sepsis: Status: Acute (2) Gastroenteritis: Status: Acute (3) Fever: Status: Acute (4) Hyposplenism: Status: Chronic (5) H/O splenectomy: (6) Acute hyperglycemia: Status: Acute (7) SWANN (nonalcoholic steatohepatitis): Status: Chronic (8) Tobacco abuse: Status: Chronic Discharge Plan Disposition Patient Disposition: Home Condition: Improving Discharge Details Reason For Visit: Gastroenteritis with fever, Hyposlenia Admit Date/Time: 01/03/25 04:41 Admit Provider: Rodolfo Morel Attending Provider: Rodolfo Morel Primary Care Provider: Mihaela Swanson Hospital Course Hospital Course: This 54 years old male patient with a past medical history of aslepnia s/p sugical resection in his 20's after traumatic injury, prediabetes presented to the ED at [facility] on 01/03/25 for evaluation of fever, sudden onset lower abdominal pain, nausea bilious vomiting and diarrhea w/o hematochezia or melena. The workup in the ED showed ascistes , collapsed colon with fat halo sign suspicious for inflammatory bowel disease, fatty liver infiltration, small left paracentral anterior abdominal wall hernia measuring 4 cm wide by 1.8 cm AP by 2.8 cm craniocaudal with mesenteric fat content w/o bowel loops, regenerated splenule, measuring 8.6 x 6.7 cm, and 5 mm left lung nodule . CBC and chemistry were unremarkable. The patient was admitted to the medical surgical floor with telemetry for sepsis with temp 38.7, tahchycardia at 106 and tachypnea at 31 in the setting of gastroenteritis and aslepnia for IV antibiotics. Treatment initiated with flagyl and vancomycin which was transitioned to ceftriaxone. On the days of discharge the patient had been afebrile for 24 hours , with negative blood cultures, stable vital signs and labs and will be discharge home with follow-up with PCP within 7 days of discharge and a referral to outpatient surgery to f/u on the abdominal hernia; will follow-up with care transitions nurse outpatient; able to return to work when he feels GI symptoms have subsided. Recommendations for PCP follow-up: -A1C 6.9- LDL 112 w total cholesterol 163 -Enlarged prostate -F/u on IBD suspicion as per CT -Sx referral re: Abdominal hernia-ordered -Referral to GI re: SWANN -Referral to hemato re: splenule ( was aslepnic s/p Sx s/p trauma) on CT -Referral to pulmonology re: lung nodule seen as early as [address] Mcnamara Home Meds and New Rx's Prescriptions: New cefpodoxime 200 mg tablet 200 mg PO BID Qty: 10 0RF Rx Instructions: must administer with a meal/food metronidazole 500 mg tablet 500 mg PO Q8H Qty: 15 0RF Bio-K plus 50 billion cell capsule,delayed release(DR/EC) 1 cap PO DAILY Qty: 5 0RF Rx Instructions: Take 3 hours apart from antibiotics No Action No Known Home Meds Discharge Instructions Stand Alone Forms: Nursing Discharge Form Referrals: [facility] [OTHER] - (anterior abdominal wall hernia ) Mihaela Swanson [Primary Care Provider] - (Referral within 7 days of discharge) Activity:: Activity as Tolerated Equipment/Supplies:: No Equipment Needed Diet:: heart healthy diabetic Discharge Orders Discharge Orders: Discharge Order (Routine); Ordered 01/05/25 Ordered By: Liliya Ferrell DS: Summary Time Spent with Patient providing and/or coordinating discharge services: Greater than 30 minutes Status at Discharge Functional status at discharge: independent ambulation Overall status at discharge: patient is progressing back to baseline Mental Status: mental status grossly normal Speech and Movement: speech and movement normal Mood: congruent mood Affect: normal affect Quality:SDOH Health Related Social Needs: Health related social needs education (Z55.6) Exam Narrative Exam Narrative: Constitutional The patient is without acute distress, HENMT: Facial structures with normal appearance Eyes: Well aligned, intact ROM, non-icteric Neuro:alert and oriented X4 Resp: Normal respiratory pattern, speaks in full sentences, unlabored breathing, clear lung bilaterally Cardio: Tele SR with PAC's , S1, S2, no murmur GI: Abdomen is is large, not distended, soft and non tender, bowel sounds are present : Negative Costovertebral angle tenderness, no bladder distension Back/spine/Pelvis: No back tenderness, normal alignment Integumentary: No skin lesions or rash to exposed skin Extremities: strength 5/5 to bilateral lower and upper extremities Psych: RASS 0, congruent mood and normal affect. Psych Mental Status: mental status grossly normal Speech and Movement: speech and movement normal Mood: congruent mood Affect: normal affect DS: Data Vitals/I&O Vitals and I&O: Vital Signs Temperature 36.0 C L 01/05/25 08:37 Temperature Source Temporal Artery Scan 01/05/25 08:37 Pulse 62 01/05/25 08:37 Pulse Rhythm Irregular 01/03/25 05:19 Pulse 106 H 01/03/25 05:07 Respiratory Rate 16 01/05/25 08:37 Respiratory Effort Short of Breath 01/03/25 05:19 Respiratory Depth Normal 01/03/25 05:19 Respiratory Pattern Normal 01/03/25 05:19 Blood Pressure 124/82 01/05/25 08:37 Blood Pressure Mean 53 01/03/25 05:07 Pulse Oximetry 94 01/05/25 08:37 Oxygen Delivery Method Room Air 01/05/25 08:37 Oxygen Flow Rate 0 01/05/25 08:37 Pain Level 0 01/05/25 08:37 Comment Notifying RN on pulse 01/03/25 14:54 Intake & Output 01/04/25 01/04/25 01/05/25 11:59 23:59 11:59 Intake Total 860 / 860 260 / 260 Output Total 450 / 1350 900 / 1350 1350 / 1350 Balance -450 / -490 -40 / -490 -1090 / -1090 Weight 111.6 kg Intake: IV 160 / 160 260 / 260 Oral 700 / 700 Output: Urine 450 / 1350 900 / 1350 900 / 900 Stool 450 / 450 Other: Urine Color Light Layla Light Layla Yellow Urine Appearance Clear Clear Clear Urine Odor Strong Strong Normal Comment Patient voids ind. in toilet. Stool Size Small Stool Characteristics Liquid Brown Data Completed and Pending Labs on day of discharge: Labs from last 24 hours 01/05/25 01/05/25 05:05 00:53 WBC 6.39 RBC 4.23 L Hgb 12.9 L Hct 37.8 L MCV 89 MCH 30.5 MCHC 34.1 RDW 12.5 Plt Count 192 MPV 10.2 Immature Gran % 0.0 Neutrophils % 41.0 Band Neutrophils % 3 Lymphocytes % 33.0 Atypical Lymphs % 6 Monocytes % 12.0 Eosinophils % 5.0 Basophils % 0.0 Nucleated RBC % 0.0 Absolute Neutrophils 2.81 Absolute Lymphocytes 2.49 Absolute Monocytes 0.77 Absolute Eosinophils 0.32 Absolute Basophils 0.00 RBC Morphology Normal Triglycerides 109 Total Cholesterol 163 LDL Cholesterol, Calc 112 H HDL Cholesterol 30 Stool Calprotectin Pending Stool Campylobacter PCR Pending Stool Salmonella PCR Pending Stool Shigella PCR Pending Shiga Toxin (PCR) Pending 01/05/25 02:30 Urine - Clean Catch Urine Culture - Pending Preliminary micro results at discharge 01/03/25 01:29 Blood Culture - Preliminary Blood NO GROWTH 48 HOURS 01/03/25 01:23 Blood Culture - Preliminary Blood NO GROWTH 48 HOURS 01/05/25 02:30 Urine Culture - Pending Urine - Clean Catch PFSH All Active Problems (Updated 01/04/25 @ 17:13 by Liliya Ferrell APRN) Sepsis (Acute) Severe sepsis (Acute) SWANN (nonalcoholic steatohepatitis) (Chronic) Fever (Acute) Acute hyperglycemia (Acute) Hyposplenism (Chronic) Gastroenteritis (Acute) Asplenia (Acute) Carpal tunnel syndrome on both sides (Acute) Medial epicondylitis of both elbows (Acute) Lateral epicondylitis of both elbows (Acute) Normal colonoscopy (Acute ~08/05/23) Diarrhea (Acute) Enteritis (Acute) 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) Tobacco abuse (Chronic) Medical History Influenza 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 Prediabetes Cough Plantar fascial fibromatosis Posterior rhinorrhea Cervical radiculopathy Screening for malignant neoplasm of colon performed Screening for colon cancer Tobacco chew use Heel spur Bronchitis Acquired asplenia Hyperglycemia Plantar fasciitis Hyperlipidemia Rotator cuff syndrome of shoulder and allied disorders Deviated septum Hoarseness Surgical History History of colonoscopy (~07/2023) biopsies sent H/O splenectomy (~07/2023) Family History Mother Diabetes Social History Smoking/Tobacco Use Status: Current every day Tobacco Type: smokeless tobacco Smoking risk assessment performed?: Yes Alcohol Intake: never Drug use: Never Substance use type: does not use Housing: other Do you feel safe at home: Yes Do you feel safe in your relationship?: Yes Additional Social history: quit smoking couple years ago - chey Time Spent with Patient Time Spent with Patient: 70-84 minutes4 Time was spent: preparing to see the patient(eg.review tests), obtaining and/or reviewing separately otained hiistory, ordering medications,tests, procedures, referring, communicating with other health pulmonary care nurse, indepentently interpreting results, counseling the patient and care coordination
--- NOTE | 2025-01-05 13:27 | PDOC.CMDIS ---
Date of service: 01/05/25 Time of Service: 13:27 LACE Index Scoring Tool Questions: Length of Stay (in days): 2 Was the patient admitted via the E.D.?: Yes Comorbidities: Liver or Renal Disease E.D. Visits: 2 Answers: Total Score: 12 Risk of Readmission: High Risk Care Management Discharge Plan Reason for Hospitalization: gastroenteritis Discharge Plan: Leonardo will be discharged home via private vehicle with family. He will follow up with this community providers and discharge plan of care as directed. CM provided a return to work note at discharge at Leonardo's request. Patient/Family Education Needs: Review discharge instructions, discuss Ask Me Three SDOH Health Related Social Needs: Health related social needs education (Z55.6)
[2025-01-06 10:25] LABS: Campylobacter PCR Negative (Negative); Salmonella PCR Negative (Negative); Shiga Toxin PCR Negative (Negative); Shigella/Enteroinvasive Ecoli Negative (Negative)
[2025-01-09 19:56] LABS: Calprotectin <50.0 mcg/g
== END 2025-01-05 11:57 | disposition home or self-care (01) | DRG 872 ==
LOC: ER 05:15 → MS 05:32
PROVIDERS: Admitting Provider Family Medicine; Emergency Provider Student in an Organized Health Care Education/Training Program; PCP Physician Assistant; Responsible Provider Nurse Practitioner Acute Care; Visit Provider Family Medicine
DX: A41.89 Other specified sepsis (principal); A08.39 Other viral enteritis; R18.8 Other ascites; R50.81 Fever presenting with conditions classified elsewhere; K75.81 Nonalcoholic steatohepatitis (NASH); E11.65 Type 2 diabetes mellitus with hyperglycemia; D73.0 Hyposplenism; E66.3 Overweight; E86.0 Dehydration; J38.4 Edema of larynx; F17.220 Nicotine dependence, chewing tobacco, uncomplicated; M54.12 Radiculopathy, cervical region; R91.1 Solitary pulmonary nodule; K43.9 Ventral hernia without obstruction or gangrene; K58.9 Irritable bowel syndrome, unspecified; Z68.38 Body mass index [BMI] 38.0-38.9, adult
CPT/HCPCS: 00123; 36415; 80053; 80061; 82805; 83690; 84145; 85027; 87040; 87505; 87637; 93005; 96365; 96366; 96367; 96375; 99285; J1650; 71045; 74177; 80202; 81003; 81015; 83036; 83605; 83735; 83993; 85025; 85610; 87086; 93010; 99223; 99233; 99239; J0131; J0696; J1815; J1836; J1885; J2405; J3370; J3490

== ENCOUNTER 2025-02-05 12:07 | Outpatient (REF) | payer OTHER, SELFPAY ==
[2025-02-05 19:45] LABS: Abs Immature Grans 0.02 10^3/uL (0.0-0.06); Absolute Basophil Count 0.04 10^3/uL (0.0-0.2); Absolute Eosinophil Count 0.75 10^3/uL (0.0-0.7); Absolute Lymphocyte Count 4.04 10^3/uL (1.2-3.4); Absolute Monocyte Count 0.72 10^3/uL (0.1-0.8); Absolute Neutrophil Count 3.76 10^3/uL (1.2-6.7); Basophils % 0.4 %; HCT 42.3 % (40.0-50.0); HGB 14.5 g/dL (13.5-17.5); Immature Grans % 0.2 %; Lymphocytes % 43.3 %; MCH 30.9 pg (27.0-33.0); MCHC 34.3 % (32.0-36.0); MCV 90 fL (80-95); MPV 9.6 fL (8.0-11.0); Monocytes % 7.7 %; Neutrophils % 40.4 %; Platelet Count 348 10^3/uL (130-400); RBC 4.69 10^6/uL (4.36-5.78); RDW 13.2 % (11.8-14.1); RDW-SD 43.7 fL; WBC 9.33 10^3/uL (4.4-10.8)
[2025-02-05 20:21] LABS: Iron 87 ug/dL (65-175); Total Iron Binding Capacity 333 ug/dL (250-450); Transferrin Sat 26 % (20-55)
[2025-02-05 20:30] LABS: Ferritin 179 ng/mL (26-388)
[2025-02-07 09:00] LABS: HBs Antibody, Quant <3.1 mIU/mL (See Note); Hepatitis B Surface Ab Negative (See Note)
[2025-02-07 09:07] LABS: Hepatitis B Surface Ag Negative (Negative)
[2025-02-07 09:57] LABS: HIV-1/2 Ag & Ab Screen Negative (Negative)
[2025-02-07 10:04] LABS: Hepatitis C Ab w Rflx HCV PCR Negative (Negative)
[2025-02-07 10:16] LABS: Alpha 1 Antitrypsin,Serum 138 mg/dL (90-200)
== END 2025-02-05 12:08 | disposition home or self-care (01) ==
LOC: NCHCN 12:07
PROVIDERS: PCP Physician Assistant; Visit Provider Physician Assistant
DX: R18.8 Other ascites (principal)
CPT/HCPCS: 86706; 86803; 87340; 87389; 82103; 82728; 83540; 83550; 85025

== ENCOUNTER 2025-04-19 14:00 | Outpatient (REF) | payer OTHER, SELFPAY ==
[2025-04-19 19:36] LABS: Hemoglobin A1C 6.4 % (<5.7)
[2025-04-19 19:42] LABS: ALT 51 U/L (16-63); AST 32 U/L (15-37); Albumin 4.1 g/dL (3.4-5.0); Alkaline Phosphatase 104 U/L (46-116); Anion Gap 6.0 mmol/L (3-11); BUN 20 mg/dL (7-18); Bilirubin, Total 0.4 mg/dL (0.2-1.0); CO2 29.0 mmol/L (21.0-32.0); Calcium 9.1 mg/dL (8.5-10.1); Calculated LDL 100 mg/dL (<100); Chloride 102 mmol/L (98-107); Cholesterol 155 mg/dL (<200); Estimated GFR 105.82 (mL/min/1.73m2); Glucose 108 mg/dL (74-106); HDL Cholesterol 38 mg/dL (>or=40); Potassium 4.3 mmol/L (3.5-5.1); Sodium 137 mmol/L (136-145); Total Protein 7.5 g/dL (6.4-8.2); Triglyceride 89 mg/dL (<150)
== END 2025-04-19 14:01 | disposition home or self-care (01) ==
LOC: NCHCN 14:00
PROVIDERS: PCP Physician Assistant; Visit Provider Physician Assistant
DX: E11.9 Type 2 diabetes mellitus without complications (principal); E78.5 Hyperlipidemia, unspecified
CPT/HCPCS: 80053; 80061; 83036